=== PATIENT | female | born 1950 | race Caucasian/White ===

== ENCOUNTER → 2017-05-18 10:21 | Outpatient (CLI) | payer BC, SELFPAY | PROVIDERS: PCP Internal Medicine; Visit Provider Internal Medicine | DX: J11.1 Influenza due to unidentified influenza virus with other respiratory manifestations (principal) | CPT/HCPCS: 87275; 87276 ==

== ENCOUNTER → 2017-11-29 08:10 | Outpatient (CLI) | payer BC, SELFPAY ==
--- NOTE | 2017-11-29 08:12 | MM_ITS ---
MM Dig screening mamm BI w/CAD ORDERING PHYSICIAN : Lam Greene MD PATIENT AGE: 67 years GENDER: Female COMPARISON: July 2016, May 2010, April 2014, September 2011 INDICATION: ITS.REASON: Routine Mammogram Screeing TECHNIQUE: Standard CC and MLO images were obtained. R2 CAD reviewed. FINDINGS: Moderate heterogeneous breast density in character with no definitive nor prominent interval change . No areas of significant new concerns. Asymmetric areas of fibroglandular density seen today appear similar to previous studies RIGHT BREAST heterogeneous breast density. Focal areas of mild relative density are similar to previous studies dating back to 2014, 2011 particularly is noted at the superior right breast with these areas seem to dissipate from one view to another as well and appear stable overall LEFT BREAST:Stable appearance to the fibroglandular elements on left. Follow up one year on left IMPRESSION: . No significant new findings. Adequate Stable bilateral mammogram Moderate breast density BI-RADS Category: 2 Benign Finding(s) RECOMMENDED FOLLOW-UP: 1YR 1 YEAR FOLLOW-UP (A letter has been sent to the patient regarding results of the study.)
== END ==
PROVIDERS: Family Provider Internal Medicine; PCP Internal Medicine; Visit Provider Nurse Practitioner Obstetrics & Gynecology
DX: Z12.31 Encounter for screening mammogram for malignant neoplasm of breast (principal)
CPT/HCPCS: 77067

== ENCOUNTER → 2020-01-09 08:41 | Outpatient (CLI) | payer BC, SELFPAY ==
--- NOTE | 2020-01-09 08:41 | MM_ITS ---
PROCEDURE: MM DIG SCREENING MAMM BI W/CAD Digital Breast Tomosynthesis Included CLINICAL INDICATION: screening xmg There is no personal or family history of breast cancer. COMPARISON: MG [facility] DIG MAMM-SCREEN [facility] from 05/02/2014 MG [facility] DIG MAMM-SCREEN [facility] W/CAD from 07/27/2016 [facility] MM Dig screening mamm BI w/CAD from 11/29/2017 TECHNIQUE: Standard CC and MLO images and 3D Tomosynthesis was obtained. R2 CAD reviewed. FINDINGS: Diffuse fibroglandular densities are seen throughout both breast and the findings are bilateral and symmetrical. There is faint arterial calcification in each breast. There is no suspicious lesion and no suspicious microcalcifications. IMPRESSION: Moderate diffuse breast density with no suspicious lesions seen BI-RAD Category: 2 Benign Finding(s) FOLLOW-UP: 1YR 1 Year Follow-up (A letter has been sent to the patient regarding results of the study.) Dictated by: Dr. Eleazar Woody MD 01/14/2020 10:30 Dr. Eleazar Woody MD in [place] 01/14/2020 10:30
[2020-01-09 09:54] LABS: Basophils % 1.1 % (0.1-2.0); Eosinophils # 0.2 K/mm3 (0.0-0.4); Eosinophils % 4.7 % (0.1-12.0); Hematocrit 41.4 % (37.0-47.0); Hemoglobin 13.7 g/dL (12.2-16.2); Lymphocytes # 0.9 K/mm3 (0.7-4.5); Lymphocytes % 25.8 % (10-50); Mean Corpuscular HGB Conc 33.1 g/dL (31.8-35.4); Mean Corpuscular Volume 90.6 fl (81-99); Mean Platelet Volume 8.4 fl (7.4-10.4); Monocytes # 0.3 K/mm3 (0.1-1.0); Monocytes % 7.1 % (1.7-9.3); Neutrophils # 2.2 K/mm3 (1.8-7.8); Neutrophils % 61.4 % (37.0-80.0); Platelet Count 203 K/mm3 (142-424); Red Blood Count 4.56 M/mm3 (4.20-5.40); Red Cell Distribution Width 12.9 % (11.5-17.5); White Blood Count 3.6 K/mm3 (4.8-10.8)
[2020-01-09 11:24] LABS: Chloride 105 mmol/L (98-107); Potassium 4.2 mmoL/L (3.5-5.1); Sodium 138 mmol/L (136-145)
[2020-01-09 11:26] LABS: Blood Urea Nitrogen 14 mg/dl (7-17); Estimated Glomerular Filt Rate 83 ml/min (>60); GFR (African American) 101 ML/MIN (>60)
[2020-01-09 11:27] LABS: Alanine Aminotransferase 14 U/L (12-78); Albumin Level 3.7 g/dl (3.5-5.0); Albumin/Globulin Ratio 1.4 (1.1-1.8); Alkaline Phosphatase 56 U/L (38-126); Anion Gap 9.2 mEq/L (5-15); Aspartate Amino Transferase 29 U/L (14-36); Bilirubin,Total 0.5 mg/dl (0.2-1.3); Calcium 8.7 mg/dl (8.4-10.2); Carbon Dioxide 28 mmol/L (22.0-30.0); Cholesterol 191 mg/dl (140-200); Globulin 2.6 g/dL (1.3-3.2); Glucose 93 mg/dl (74-100); Total Protein,Serum 6.3 g/dl (6.3-8.2); Triglycerides 63 mg/dl (30-150); VLDL Cholesterol 13 mg/dL (0-40)
[2020-01-09 11:28] LABS: Chol/HDL Ratio 2.6 (1-3.5); HDL Cholesterol 73 mg/dl (40-60)
[2020-01-09 11:38] LABS: Direct LDL Cholesterol 98.63 mg/dL (100-129)
== END ==
PROVIDERS: PCP Internal Medicine; Visit Provider Nurse Practitioner Obstetrics & Gynecology
DX: Z12.31 Encounter for screening mammogram for malignant neoplasm of breast (principal); Z01.419 Encounter for gynecological examination (general) (routine) without abnormal findings
CPT/HCPCS: 36415; 77063; 77067; 80053; 80061; 85025

== ENCOUNTER → 2020-01-09 09:19 | Outpatient (CLI) | payer BC, SELFPAY | PROVIDERS: Visit Provider Nurse Practitioner Obstetrics & Gynecology | DX: Z01.419 Encounter for gynecological examination (general) (routine) without abnormal findings (principal) | CPT/HCPCS: 36415; 80053; 80061; 85025 ==

== ENCOUNTER 2020-09-10 14:15 | Emergency (ER) | payer MEDICARE, SELFPAY ==
[2020-09-10 14:16] VITALS: BP 136/89; PULSE 77; RESP 16; TEMP 36.6; O2SAT 98; BMI 27.1
[2020-09-10 14:32] LABS: POC Glucose,Bedside 112 (70-110)
--- NOTE | 2020-09-10 14:39 | XR_ITS ---
PROCEDURE: XR CHEST PORTABLE CLINICAL HISTORY: confusion COMPARISON: No exams were available for comparison FINDINGS: The cardiomediastinal silhouette and pulmonary vascularity are within normal limits. The lungs are clear without infiltrates, suspicious nodules, or pleural effusions. There is minimal opacity within the left CP angle which could be due to small area of atelectasis or fibrosis IMPRESSION: Small nonspecific opacity left CP angle otherwise negative Dictated by: Casey Mariee MD 09/10/2020 16:56 Casey Mariee MD in [place] 09/10/2020 16:56
--- NOTE | 2020-09-10 14:51 | ECG_ITS ---
APPROVED REPORT Exam: Resting ECG HR:59 bpm ECG Measurements Heart Rate 59 AXES LA 194 P 66 QRSd 76 QRS 14 QT 434 T 38 QTc 429 Conclusion Sinus bradycardia Cannot rule out Anterior infarct, age undetermined Abnormal ECG Electronically signed by : Low Deng, 09/10/2020 19:47:28
[2020-09-10 14:54] LABS: Basophils % 0.4 % (0.1-2.0); Eosinophils % 0.6 % (0.1-12.0); Hematocrit 42.6 % (37.0-47.0); Hemoglobin 14.6 g/dL (12.2-16.2); Lymphocytes # 0.7 K/mm3 (0.7-4.5); Lymphocytes % 11.8 % (10-50); Mean Corpuscular HGB Conc 34.3 g/dL (31.8-35.4); Mean Corpuscular Volume 87.5 fl (81-99); Mean Platelet Volume 8.7 fl (7.4-10.4); Monocytes # 0.2 K/mm3 (0.1-1.0); Monocytes % 3.2 % (1.7-9.3); Neutrophils # 5.2 K/mm3 (1.8-7.8); Platelet Count 204 K/mm3 (142-424); Red Blood Count 4.86 M/mm3 (4.20-5.40); Red Cell Distribution Width 12.9 % (11.5-17.5); White Blood Count 6.1 K/mm3 (4.8-10.8)
--- NOTE | 2020-09-10 14:55 | CT_ITS ---
PROCEDURE: CT HEAD/BRAIN WO CON CLINICAL INDICATION: memory loss COMPARISON: CT CT ANGIO NECK from 09/10/2020 TECHNIQUE: Axial images obtained. All CT scans at the facility use one or more dose reduction, viz: automated exposure control, ma/kV adjustment per patient size (including targeted exams where dose is matched to indication, i.e. head), or iterative reconstruction technique. FINDINGS: No midline shift, mass effect, intracranial hemorrhage, hydrocephalus, or extra-axial fluid collection is evident. The calvarium has an unremarkable appearance. There is a small amount fluid in the right mastoid sinus. No sinus air-fluid level. IMPRESSION: No acute intracranial finding Dictated by: Casey Mareie MD 09/10/2020 16:19 Casey Mariee MD in [place] 09/10/2020 16:19
--- NOTE | 2020-09-10 14:56 | CT_ITS ---
Procedure: CT ANGIO NECK CT ANGIO HEAD CLINICAL HISTORY: memory loss COMPARISON: CT CT ANGIO HEAD from 09/10/2020 TECHNIQUE: IV Contrast: 100ml Isovue 370 Axial images obtained with sagittal and coronal reformats. All CT scans at the facility use one or more dose reduction, viz: automated exposure control, ma/kV adjustment per patient size (including targeted exams where dose is matched to indication, i.e. head), or iterative reconstruction technique. FINDINGS: CTA neck: The aortic arch has an unremarkable appearance. There is bovine origin of both the right brachiocephalic artery and the left common carotid artery. There is considerable artifact from contrast within the venous structures on the right and the superior vena cava. The right carotid and internal carotid have an unremarkable appearance. No stenotic lesions dissections, or significant stenosis. There is a mild amount soft and calcific plaque involving the carotid bulb and proximal left ICA with less than 20 percent stenosis. There is some minimal ulceration along the superior aspect of the plaque. No evidence of dissection. The remaining portion of the internal carotid has an unremarkable appearance. The vertebral arteries have an unremarkable appearance. CTA head: No aneurysm, AVM, intracranial arterial dissection, or major intracranial occlusive process apparent. No enhancing lesions, midline shift, mass effect, or hydrocephalus is evident. No dural sinus thrombosis apparent. IMPRESSION: No significant stenotic lesions. There is some minimal calcific and soft plaque along the left carotid bulb and proximal ICA with some shallow ulceration superiorly. No aneurysm, AVM, dissection, or major intracranial occlusive process apparent Dictated by: Casey Mariee MD 09/10/2020 16:32 Casey Mariee MD in [place] 09/10/2020 16:32
[2020-09-10 15:00] VITALS: BP 140/84; PULSE 71; RESP 18; O2SAT 97
[2020-09-10 15:04] LABS: Sodium 135 mmol/L (136-145)
[2020-09-10 15:06] LABS: Chloride 101 mmol/L (98-107)
[2020-09-10 15:07] LABS: Alanine Aminotransferase 19 U/L (12-78); Albumin Level 4.7 g/dl (3.5-5.0); Albumin/Globulin Ratio 1.5 (1.1-1.8); Alkaline Phosphatase 87 U/L (38-126); Aspartate Amino Transferase 31 U/L (14-36); Bilirubin,Total 0.8 mg/dl (0.2-1.3); Blood Urea Nitrogen 15 mg/dl (7-17); Carbon Dioxide 25 mmol/L (22.0-30.0); Creatinine Clearance Estimated 60 mL/min (50-200); Estimated Glomerular Filt Rate 100 ml/min (>60); GFR (African American) 121 ML/MIN (>60); Globulin 3.2 g/dL (1.3-3.2); Total Protein,Serum 7.9 g/dl (6.3-8.2)
[2020-09-10 15:08] LABS: Calcium 9.4 mg/dl (8.4-10.2); Glucose 117 mg/dl (74-100)
--- NOTE | 2020-09-10 15:11 | HMH.EDGENADL ---
ED Disposition Clinical Impression: Retrograde amnesia, Anxiety reaction Disposition: Home, Self-Care Condition on Discharge: Fair Additional Instructions: Try to relax at home do not drive for next couple days make sure patient stays accompanied at home and also does not cook with fire. Follow-up in neurology clinic with Dr. David Anne Prescriptions: Aspirin [Aspirin 81mg EC Tab] 81 mg PO DAILY 30 Days #30 tablet.dr Transmission Status: Pending to [facility] Atorvastatin Calcium [Lipitor 40mg Tab] 40 mg PO HS #30 tab Transmission Status: Pending to [facility] Referrals: Maxim Martinez [Primary Care Provider] - - Critical Care Critical Care Time: No Attestation: On 09/10/20, the high probability of a clinically significant, sudden or life threatening deterioration of the following system(s) required my full and direct attention, intervention and personal management. The time I documented below is in addition to time spent performing reported procedures but includes the following listed in this critical care notation. Medical Decision Making - Medical Records Medical records reviewed: Yes: I reviewed the patient's medical records. - Oh Inquiry Pt receiving controlled substance: No Vital Signs: 09/10/20 14:16 09/10/20 15:00 09/10/20 15:30 Temperature 98 F Temperature Source Oral Pulse Rate 71 61 Pulse Rate [Radial] 77 Respiratory Rate 16 18 14 Blood Pressure 140/84 119/76 Blood Pressure [Right Arm] 136/89 Blood Pressure Mean 102 101 Blood Pressure Mean [Right Arm] 104 Blood Pressure Position [Right Arm] Sitting 02 Sat by Pulse Oximetry 98 97 96 Oxygen Delivery Method Room Air - Lab Data Lab results reviewed: Yes: I reviewed the patient's lab results. Lab Results 09/10/20 14:25: POC Glucose 112 H 09/10/20 14:40: WBC 6.1, RBC 4.86, Hgb 14.6, Hct 42.6, MCV 87.5, MCH 30.0, MCHC 34.3, RDW 12.9, Plt Count 204, MPV 8.7, Neut % (Auto) 84.0 H, Lymph % (Auto) 11.8, Harper % (Auto) 3.2, Eos % (Auto) 0.6, Baso % (Auto) 0.4, Neut # (Auto) 5.2, Lymph # (Auto) 0.7, Harper # (Auto) 0.2, Eos # (Auto) 0.0, Baso # (Auto) 0.0 09/10/20 14:40: Sodium 135 L, Potassium 4.0, Chloride 101, Carbon Dioxide 25, Anion Gap 13.0, BUN 15, Creatinine 0.60, Estimated Creat Clear 60, Estimated GFR 100, Est GFR ( Amer) 121, Glucose 117 H, Calcium 9.4, Total Bilirubin 0.8, AST 31, ALT 19, Alkaline Phosphatase 87, Total Protein 7.9 D, Albumin 4.7, Globulin 3.2, Albumin/Globulin Ratio 1.5 09/10/20 16:55: POC Glucose 104 Result diagrams: 09/10/20 14:40 09/10/20 14:40 Orders (Tests/Meds): ED MEDICATIONS Generic Name Dose Route Start Last Admin Trade Name Freq PRN Reason Stop Dose Admin Sodium Chloride 10 ml 09/10/20 16:58 Sodium Chloride 0.9% 10ml Vial IV 10/10/20 16:57 NEEDED PRN to Dilute Lorazepam inj Discontinued Medications Generic Name Dose Route Start Last Admin Trade Name Freq PRN Reason Stop Dose Admin Iopamidol 100 ml 09/10/20 15:51 09/10/20 15:56 Iopamidol-370 (76%);100ml Bottle IV 09/10/20 15:52 100 ml ONCE ONE Administration Lorazepam 1 mg 09/10/20 16:58 09/10/20 17:00 Lorazepam 2mg/Ml Vial IV 09/10/20 16:59 1 mg ONCE ONE Administration Sodium Chloride 40 ml 09/10/20 15:51 09/10/20 15:56 0.9 % Sodium Chloride 50 Ml Vial IV 09/10/20 15:52 40 ml ONCE ONE Administration Sodium Chloride 10 ml 09/10/20 15:51 09/10/20 15:56 Sodium Chloride 0.9% 10ml Syr (Rad Only) IV 09/10/20 15:52 10 ml ONCE ONE Administration ORDERS Category Date Time Status Full Resp Panel w/COVID ([facility]) Routine Lab 09/10/20 16:59 Ordered Urinalysis and Microscopic Stat Lab 09/10/20 15:16 Ordered Medical Decision Narrative: Patient appears without any focal findings however complaining of memory lapses only today no previous history of similar episodes no unusual medications no head trauma and no history of Alz
[2020-09-10 15:30] VITALS: BP 119/76; PULSE 61; RESP 14; O2SAT 96
--- NOTE | 2020-09-10 15:35 | PC.NURSE ---
pt to CT
--- NOTE | 2020-09-10 16:36 | PC.NURSE ---
i overheard pt talking to asking why she was here and where was she. I went in and asked her her name she answered i asked her what day it was and where she was and she could not tell me. She is very confused as to what has happened to her. pt continues to ask why she is here.
--- NOTE | 2020-09-10 16:50 | PC.NURSE ---
yordan thornton notified ER that pt has become confused again, asking her why is she here and who long she has been here, becoming upset and crying. ER MD went to bedside to reassess pt.
[2020-09-10 17:03] LABS: POC Glucose,Bedside 104 (70-110)
--- NOTE | 2020-09-10 17:07 | PC.NURSE ---
placed call to [facility] for stroke team
--- NOTE | 2020-09-10 17:09 | PC.NURSE ---
Dr Meraz speaking with stroke team Dr Hurd
--- NOTE | 2020-09-10 17:15 | PC.NURSE ---
pt tearful hyperventilating family at bedside. pt states she can't remember why she is in the hospital .
[2020-09-10 17:22] LABS: Adenovirus,PCR Not Detected (NotDetected); Bordetella Pertussis Not Detected (NotDetected); Chlamydophila Pneumoniae, PCR Not Detected (NotDetected); Coronavirus 19, PCR Not Detected (NotDetected); Coronavirus 229E Not Detected (NotDetected); Coronavirus NL63 Not Detected (NotDetected); Coronavirus OC43 Not Detected (NotDetected); Coronovirus HKU1,PCR Not Detected (NotDetected); Human Metapneumovirus Not Detected (NotDetected); Influenza A, PCR Not Detected (NotDetected); Influenza AH1, 2009 Not Detected (NotDetected); Influenza AH1, PCR Not Detected (NotDetected); Influenza AH3,PCR Not Detected (NotDetected); Influenza B, PCR Not Detected (NotDetected); Mycoplasma Pneumoniae, PCR Not Detected (NotDetected); Parainfluenza 1, PCR Not Detected (NotDetected); Parainfluenza 2, PCR Not Detected (NotDetected); Parainfluenza 3, PCR Not Detected (NotDetected); Parainfluenza 4, PCR Not Detected (NotDetected); Respiratory Syncytial Virus Not Detected (NotDetected); Rhinovirus/Enterovirus Not Detected (NotDetected)
[2020-09-10 17:26] LABS: Microscopic, Urine URINE MICROSCOPIC (MICROSCOPIC)
[2020-09-10 17:47] LABS: Appearance,Urine CLEAR (Clear); Bilirubin,Urine Negative (Negative); Blood, Urine Negative (Negative); Color,Urine YELLOW (Yellow); Glucose,Urine (UA) Negative (Negative); Ketones,Urine 1+ (Negative); Leukocyte Esterase,Urine Negative (Negative); Nitrate,Urine Negative (Negative); PH,Urine 6.5 (5.0-8.5); Protein,Urine Negative (Negative); Urobilinogen,Urine 0.2 EU/dl (0.2)
[2020-09-10 18:29] VITALS: BP 122/74; PULSE 78; RESP 16; TEMP 36.6; O2SAT 98
== END 2020-09-10 18:33 | disposition home or self-care (01) ==
PROVIDERS: Emergency Provider Emergency Medicine; PCP Internal Medicine
DX: F41.1 Generalized anxiety disorder (principal); R41.2 Retrograde amnesia
CPT/HCPCS: 70450; 70496; 70498; 71045; 80053; 81001; 82962; 85025; 87581; 87633; 87798; 93005; 96374; 99283; Q9967

== ENCOUNTER → 2021-02-26 15:09 | Outpatient (CLI) | payer MEDICARE, SELFPAY ==
--- NOTE | 2021-02-26 15:10 | MM_ITS ---
PROCEDURE INFORMATION: Exam: MG Bilateral Screening 3D Mammography Exam date and time: 02/26/2021 3:10 PM Age: 70 years old Clinical indication: Encounter for screening mammogram for malignant neoplasm of breast TECHNIQUE: Imaging protocol: Bilateral screening tomosynthesis and 2D mammography including computer-aided detection (CAD) when performed. COMPARISON: 1. MG MM DIG SCREENING MAMM BI W/CAD 01/09/2020 8:57 AM 2. MG [facility] MM Dig screening mamm BI w/CAD 11/29/2017 8:37 AM FINDINGS: MAMMOGRAPHY: Breast composition: The breast tissue is heterogeneously dense, which may obscure small masses. Mass: None. Architectural distortion: None. Calcifications: No suspicious calcifications. Asymmetric density: None. Skin thickening: None. Axillary adenopathy: None. IMPRESSION: No mammographic evidence of malignancy. Annual screening is recommended unless otherwise clinically indicated. ASSESSMENT: BI-RADS Category 1: Negative
== END ==
PROVIDERS: PCP Internal Medicine; Visit Provider Nurse Practitioner Obstetrics & Gynecology
DX: Z12.31 Encounter for screening mammogram for malignant neoplasm of breast (principal)
CPT/HCPCS: 77063; 77067

== ENCOUNTER → 2021-08-01 17:16 | Outpatient (CLI) | payer MEDICARE, SELFPAY ==
[2021-08-01 19:14] LABS: Basophils % 0.9 % (0.1-2.0); Eosinophils # 0.1 K/mm3 (0.0-0.4); Eosinophils % 2.8 % (0.1-12.0); Hematocrit 39.2 % (37.0-47.0); Hemoglobin 13.3 g/dL (12.2-16.2); Lymphocytes # 0.9 K/mm3 (0.7-4.5); Lymphocytes % 21.9 % (10-50); Mean Corpuscular Hemoglobin 30.8 pg (27.0-31.2); Mean Corpuscular Volume 90.6 fl (81-99); Mean Platelet Volume 10.4 fl (7.4-10.4); Monocytes # 0.3 K/mm3 (0.1-1.0); Neutrophils # 2.7 K/mm3 (1.8-7.8); Neutrophils % 67.3 % (37.0-80.0); Platelet Count 213 K/mm3 (142-424); Red Blood Count 4.33 M/mm3 (4.20-5.40); Red Cell Distribution Width 13.4 % (11.5-17.5); White Blood Count 4.1 K/mm3 (4.8-10.8)
[2021-08-01 19:31] LABS: Erythrocyte Sedimentation Rate 14 mm/hr (0-30)
[2021-08-01 19:43] LABS: Chloride 104 mmol/L (98-107)
[2021-08-01 19:44] LABS: Potassium 4.2 mmoL/L (3.5-5.1); Sodium 135 mmol/L (136-145)
[2021-08-01 19:46] LABS: Alanine Aminotransferase 20 U/L (12-78); Albumin Level 3.8 g/dl (3.5-5.0); Albumin/Globulin Ratio 1.5 (1.1-1.8); Alkaline Phosphatase 68 U/L (38-126); Anion Gap 12.2 mEq/L (5-15); Aspartate Amino Transferase 39 U/L (14-36); Bilirubin,Total 0.6 mg/dl (0.2-1.3); Blood Urea Nitrogen 12 mg/dl (7-17); Carbon Dioxide 23 mmol/L (22.0-30.0); Estimated Glomerular Filt Rate 83 ml/min (>60); GFR (African American) 101 ML/MIN (>60); Globulin 2.5 g/dL (1.3-3.2); Total Protein,Serum 6.3 g/dl (6.3-8.2)
[2021-08-01 19:47] LABS: Calcium 8.7 mg/dl (8.4-10.2); Chol/HDL Ratio 2.8 (1-3.5); Cholesterol 192 mg/dl (140-200); Glucose 78 mg/dl (74-100); HDL Cholesterol 68 mg/dl (40-60); Triglycerides 127 mg/dl (30-150); VLDL Cholesterol 25 mg/dL (0-40)
[2021-08-01 19:58] LABS: Direct LDL Cholesterol 91.56 mg/dL (100-129)
[2021-08-01 21:33] LABS: Vitamin B12 508 pg/mL (239-931)
[2021-08-01 21:44] LABS: Folate > 20.00 ng/mL
[2021-08-05 13:11] LABS: Rapid Plasma Reagin Ab Titer Non Reactive (NonRea<1:1)
== END ==
PROVIDERS: PCP Internal Medicine; Visit Provider Internal Medicine
DX: R41.0 Disorientation, unspecified (principal); E03.9 Hypothyroidism, unspecified; F41.9 Anxiety disorder, unspecified
CPT/HCPCS: 80053; 80061; 82607; 82746; 85025; 85651; 86592

== ENCOUNTER → 2021-08-06 09:41 | Outpatient (CLI) | payer MEDICARE, BC, SELFPAY ==
--- NOTE | 2021-08-06 | ECG_ITS ---
APPROVED REPORT Exam: Resting ECG HR:58 bpm ECG Measurements Heart Rate 58 AXES QRSd 84 QRS 74 QT 415 T 68 QTc 412 Conclusion Sinus BRADYCARDIA Poor R Wave Progression Otherwise a Normal EKG Electronically signed by : Maxim Martinez MD 08/11/2021 09:52:34
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
== END ==
PROVIDERS: PCP Internal Medicine; Visit Provider Internal Medicine
DX: R41.82 Altered mental status, unspecified (principal)
CPT/HCPCS: 70450; 93005

== ENCOUNTER 2021-09-29 20:47 | Emergency (ER) | payer BC, MEDICARE, SELFPAY ==
[2021-09-29 20:48] VITALS: BP 173/70; PULSE 64; RESP 18; TEMP 36.7; O2SAT 96; BMI 26.9
[2021-09-29 21:00] VITALS: BP 145/71; PULSE 56; O2SAT 97
[2021-09-29 21:30] VITALS: BP 145/68; PULSE 56; O2SAT 98
--- NOTE | 2021-09-29 21:55 | CT_ITS ---
PROCEDURE INFORMATION: Exam: CT Orbits Without Contrast Exam date and time: 09/29/2021 10:10 PM Age: 70 years old Clinical indication: Injury or trauma; Other: Abrasion; Swelling; Orbit/periorbital; Left TECHNIQUE: Imaging protocol: Computed tomography of the orbits without contrast. Radiation optimization: All CT scans at this facility use at least one of these dose optimization techniques: automated exposure control; mA and/or kV adjustment per patient size (includes targeted exams where dose is matched to clinical indication); or iterative reconstruction. COMPARISON: CT HEAD/BRAIN WO CON 08/06/2021 10:02 AM FINDINGS: Paranasal sinuses: No air-fluid levels in the paranasal sinuses. Orbital cavities: Bilateral globes are intact. No retrobulbar hematoma or acute inflammatory changes. Soft tissues: Mild left periorbital soft tissue edema noted. No hematoma Bones/joints: No acute osseous abnormality. IMPRESSION: No evidence of acute fracture or other acute traumatic orbital injury.
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
[2021-09-29 22:00] VITALS: BP 150/66; PULSE 53; RESP 16; O2SAT 97
[2021-09-29 23:41] VITALS: BP 150/74; PULSE 56; RESP 18; TEMP 36.7; O2SAT 97
== END 2021-09-30 00:04 | disposition home or self-care (01) ==
PROVIDERS: Emergency Provider Emergency Medicine; PCP Internal Medicine
DX: S05.02XA Injury of conjunctiva and corneal abrasion without foreign body, left eye, initial encounter (principal); S05.12XA Contusion of eyeball and orbital tissues, left eye, initial encounter; H53.8 Other visual disturbances; E07.9 Disorder of thyroid, unspecified; Z79.82 Long term (current) use of aspirin; Z79.890 Hormone replacement therapy; Z79.899 Other long term (current) drug therapy; Z23 Encounter for immunization; W20.8XXA Other cause of strike by thrown, projected or falling object, initial encounter
CPT/HCPCS: 70480; 90471; 90714; 99285

== ENCOUNTER → 2022-02-06 13:38 | Outpatient (CLI) | payer BC, MEDICARE, SELFPAY ==
--- NOTE | 2022-02-06 13:52 | XR_ITS ---
FINAL REPORT CLINICAL HISTORY: CHRONIC COUGH COMPARISON: 09/10/2020 FINDINGS: Two views of the chest were obtained. The heart size and pulmonary vascularity are within normal limits. The mediastinum is normal. No acute pulmonary abnormality is identified. There is no pneumothorax. The bony thorax is intact. IMPRESSION: No active cardiopulmonary disease. Reviewed, Interpreted and Dictated by Felton Minor III, MD Transcribed by Caroilne Swenson Authenticated and [facility]
== END ==
PROVIDERS: PCP Internal Medicine; Visit Provider Internal Medicine
DX: R05.3 Chronic cough (principal)
CPT/HCPCS: 71046

== ENCOUNTER → 2022-07-01 13:57 | Outpatient (CLI) | payer BC, MEDICARE, SELFPAY ==
--- NOTE | 2022-07-01 14:16 | MR_ITS ---
FINAL REPORT CLINICAL HISTORY: Recurrent confusion, alteration in awareness, ence FORGETFULNESS TO PLACES X 6 TIMES MEMORY LOSS THIS HAS BEEN GOING ON FOR 1.5 YEARS HAD COVID TWICE 2020 BLURRED VISION HEADACHES FINDINGS: Multiplanar MR imaging of the brain was performed without and with contrast. There is no evidence of intracranial hemorrhage or mass. There is no evidence of Chiari malformation. There is minimal scattered increased signal in the deep white matter which is nonspecific. No abnormal extra-axial fluid collection is seen. The ventricular size is within normal limits. There is no evidence of shift of the midline structures. The posterior fossa and brainstem have an unremarkable appearance. No area of abnormal restricted diffusion is identified. No abnormal contrast enhancement is seen. The 7th and 8th nerve root complexes are intact. There is mild abnormal signal in the right mastoid air cells consistent with chronic mastoiditis. IMPRESSION: Nonspecific white matter signal changes. Chronic right mastoiditis. Reviewed, Interpreted and Dictated by Randal Quintero MD Transcribed by Myra Esparza Authenticated and [facility]
[2022-07-01 14:57] LABS: Potassium 4.2 mmoL/L (3.5-5.1); Sodium 135 mmol/L (136-145)
[2022-07-01 15:00] LABS: Blood Urea Nitrogen 13 mg/dl (7-17); Calcium 8.5 mg/dl (8.4-10.2); Carbon Dioxide 27 mmol/L (22.0-30.0); Estimated Glomerular Filt Rate 71 ml/min (>60); GFR (African American) 86 ML/MIN (>60); Glucose 72 mg/dl (74-100)
[2022-07-01 15:06] LABS: C-Reactive Protein 1.1 mg/L (0-4)
[2022-07-01 15:10] LABS: Erythrocyte Sedimentation Rate 18 mm/hr (0-30)
[2022-07-01 15:18] LABS: T4 (Thyroxine) 7.1 ug/dl (5.53-11.0)
[2022-07-01 15:28] LABS: Triiodothryronine (T3) Uptake 28 % (23.5-40.5)
[2022-07-01 15:32] LABS: Thyroid Stimulating Hormone 3.89 uIU/mL (0.465-4.68)
[2022-07-01 16:18] LABS: Vitamin B12 386 pg/mL (239-931)
[2022-07-01 16:21] LABS: Folate > 20.00 ng/mL
[2022-07-01 16:23] LABS: Anion Gap 9.2 mEq/L (5-15); Chloride 103 mmol/L (98-107)
[2022-07-02 10:07] LABS: Free T4 (Free Thyroxine) 0.79 ng/dl (0.78-2.19)
[2022-07-03 10:41] LABS: Rapid Plasma Reagin Ab Titer Non Reactive (NonRea<1:1)
[2022-07-03 11:51] LABS: Thyroid Peroxidase Antibodies <9 IU/mL (0-34)
[2022-07-03 13:11] LABS: Anti-Centromere B Antibodies <0.2 AI (0.0-0.9); Anti-DNA (DS) Ab Qn <1 IU/mL (0-9); Anti-Jo-1 <0.2 AI (0.0-0.9); Anti-Smith Antibody <0.2 AI (0.0-0.9); Antichromatin Antibodies <0.2 AI (0.0-0.9); Antiscleroderma-70 Antibodies <0.2 AI (0.0-0.9); RNP Antibodies 0.2 AI (0.0-0.9); Sjogren's Anti-SS-A <0.2 AI (0.0-0.9); Sjogren's Anti-SS-B <0.2 AI (0.0-0.9)
== END ==
LOC: RAD 14:00
PROVIDERS: PCP Internal Medicine; Visit Provider Nurse Practitioner Family
DX: G93.40 Encephalopathy, unspecified (principal); R46.89 Other symptoms and signs involving appearance and behavior; E07.9 Disorder of thyroid, unspecified; R06.83 Snoring; E66.3 Overweight; Z68.28 Body mass index [BMI] 28.0-28.9, adult
CPT/HCPCS: 36415; 70553; 80048; 82607; 82746; 84436; 84439; 84443; 84479; 85651; 86140; 86225; 86235; 86376; 86593; 93270; A9576

== ENCOUNTER → 2022-07-15 09:47 | Outpatient (CLI) | payer BC, MEDICARE, SELFPAY ==
[2022-07-18 13:39] LABS: Levetiracetam (Keppra) 6.5 ug/mL (10.0-40.0)
== END ==
PROVIDERS: PCP Internal Medicine; Visit Provider Specialist
DX: G93.40 Encephalopathy, unspecified (principal); R46.89 Other symptoms and signs involving appearance and behavior; R94.01 Abnormal electroencephalogram [EEG]
CPT/HCPCS: 36415; 80177

== ENCOUNTER → 2022-07-17 08:19 | Outpatient (CLI) | payer BC, MEDICARE, SELFPAY ==
--- NOTE | 2022-07-17 08:19 | MM_ITS ---
PROCEDURE INFORMATION: Exam: MG Bilateral Screening 3D Mammography Exam date and time: 07/17/2022 8:20 AM Age: 71 years old Clinical indication: Screening. No family history of breast cancer. TECHNIQUE: Imaging protocol: Bilateral Screening tomosynthesis and 2D mammography including computer-aided detection (CAD) when performed. COMPARISON: 1. MG MM DIG SCREENING MAMM BI W/CAD 02/26/2021 3:19 PM 2. MG MM DIG SCREENING MAMM BI W/CAD 01/09/2020 8:57 AM 3. MG [facility] MM Dig screening mamm BI w/CAD 11/29/2017 8:37 AM 4. MG [facility] DIG MAMM-SCREEN [facility] W/CAD 07/27/2016 9:49 AM FINDINGS: MAMMOGRAPHY: Breast composition: The breasts are heterogeneously dense, which may obscure small masses. Mass: No suspicious mass. Architectural distortion: None. Calcifications: No suspicious calcifications. Asymmetric density: None. Skin thickening: None. Axillary adenopathy: None. IMPRESSION: No mammographic evidence of malignancy. Annual screening is recommended unless otherwise clinically indicated. ASSESSMENT: BI-RADS Category 1: Negative
== END ==
PROVIDERS: PCP Internal Medicine; Visit Provider Nurse Practitioner Obstetrics & Gynecology
DX: Z12.31 Encounter for screening mammogram for malignant neoplasm of breast (principal)
CPT/HCPCS: 77063; 77067

== ENCOUNTER → 2022-07-23 12:58 | Outpatient (CLI) | payer BC, MEDICARE, SELFPAY | PROVIDERS: PCP Internal Medicine; Visit Provider Nurse Practitioner Family | DX: G47.33 Obstructive sleep apnea (adult) (pediatric) (principal); R06.83 Snoring; F39 Unspecified mood [affective] disorder | CPT/HCPCS: G0399 ==

== ENCOUNTER → 2022-08-14 11:33 | Outpatient (CLI) | payer BC, MEDICARE, SELFPAY ==
--- NOTE | 2022-08-14 | CA_ITS ---
APPROVED REPORT Exam: Pharmacologic Technologist: Debbie Jane, Ht: 5 ft 3 in Wt: 157 lbs BSA: 1.74 m2 HR: 50 bpm BP: 126/75 mmHg Rhythm: Sinus micah Medical History Medications: Levothyroxine,,,,, Aspirin,,,,, Estradiol,,,,, Augmentin,,,,, Escitalopram Oxalate,,,,, BRIvaracetam,,,,, LiOthyronine,,,,, Stress Test Details Test: LEXISCAN HR Resting HR: 49 bpm Max Heart Rate (APMHR): 151.567862 bpm Max HR Achieved: 90 bpm Target HR (85% APMHR): 128.091900 bpm % of APMHR: 59.60 Recovery HR: 82 bpm BP Resting BP: 126/75 mmHg Max BP: 137/82 mmHg Recovery BP: 134.0/54.0 mmHg ECG Resting ECG: Sinus micah Clinical Exercise duration: 04:12 min Highest Stage Achieved: Stress ECG Conclusion During lexiscan pt experinced dizziness and headache. No arrhythmias noted. <1mm ST depression. No ischemic changes. Test Summary REST . . . . . . . Sitting REST 02:52 . . 49 . 126/ 75 . . Stage 1 01:00 . . 82 . . . . Stage 2 01:00 . . 89 . 137/ 62 . . Stage 3 01:00 . . 86 . . . . Stage 4 01:00 . . 79 . 134/ 54 . . Stage 4 01:12 . . 79 . 134/ 54 . Stop exercise at 04:12 RECOVERY 01:00 . . 84 . 124/ 59 . . RECOVERY 02:00 . . 74 . 124/ 59 . . RECOVERY 03:00 . . 72 . 124/ 59 . . RECOVERY 04:00 . . 70 . 124/ 59 . . RECOVERY 04:35 . . 72 . 120/ 64 . . Electronically signed by : Davonte Del Angel MD 08/19/2022 08:15:16
--- NOTE | 2022-08-14 11:33 | NM_ITS ---
APPROVED REPORT Exam: Nuclear Stress Test Indication: SOB, FATIGUE, SSIZURE'S Patient Location: Outpatient Stress Tech: Kaylee Hodgson NE Tech:Yvonne AlejoJIAN RT(R)(N) Ht: 5 ft 3 in Wt: 157 lbs Bra Size: C HR: 49 bpm BP: 126/75 mmHg BSA: 1.74 m2 TID: 1.06 BMI: 27.8 History: SOB, FATIGUE, SSIZURE'S Procedure: Patient received 0.4 mg of intravenous Lexiscan, resting heart rate 49 bpm, resting blood pressure 126/75 mmHg, with Lexiscan maximum heart rate achieved was 90 bpm which is % of the maximum predicted heart rate and blood pressure was 137/82 mmHg. With Lexiscan, patient denied any complaint of chest pain. Cardiac Stress and Resting SPECT Images: Cardiac Stress and Resting SPECT images were obtained using technetium 99m Myoview 32.8 mCi stress and 10.28 mCi at rest. Uniform myocardial activity for stress and rest gated images calculated ejection fraction of 64% with normal wall motion Conclusion: Scintigraphic evidence of Lexiscan induced myocardial ischemia with normal ejection fraction normal wall motion Electronically signed by : Davonte Del Angel MD 08/18/2022 14:06:33
== END ==
PROVIDERS: PCP Internal Medicine; Visit Provider Physician Assistant
DX: R06.02 Shortness of breath (principal); R94.01 Abnormal electroencephalogram [EEG]; Z86.79 Personal history of other diseases of the circulatory system
CPT/HCPCS: 78452; 93017; 93306; A9502; J2785

== ENCOUNTER 2024-01-21 09:50 | Outpatient (CLI) | payer MEDICARE, BC, SELFPAY ==
--- NOTE | 2024-01-21 09:51 | MM_ITS ---
PROCEDURE INFORMATION: Exam: MG Bilateral Screening 3D Mammography Exam date and time: 01/21/2024 10:00 AM Age: 73 years old Clinical indication: Screening examination. TECHNIQUE: Imaging protocol: Bilateral Screening tomosynthesis and 2D mammography including computer-aided detection (CAD) when performed. COMPARISON: 1. MG MM DIG SCREENING MAMM BI W/CAD 07/17/2022 8:20 AM 2. MG MM DIG SCREENING MAMM BI W/CAD 02/26/2021 3:19 PM FINDINGS: MAMMOGRAPHY: Breast composition: There are scattered areas of fibroglandular density. Mass: None. Architectural distortion: None. Calcifications: No suspicious calcifications. Asymmetric density: None. Skin thickening: None. Axillary adenopathy: None. IMPRESSION: No mammographic evidence of malignancy. Annual screening is recommended unless otherwise clinically indicated. ASSESSMENT: BI-RADS Category 1: Negative.
== END 2024-01-21 23:59 | disposition home or self-care (01) ==
LOC: RAD 09:51
PROVIDERS: PCP Internal Medicine; Visit Provider Nurse Practitioner Obstetrics & Gynecology
DX: Z12.31 Encounter for screening mammogram for malignant neoplasm of breast (principal)
CPT/HCPCS: 77063; 77067

== ENCOUNTER 2024-09-26 17:25 | Outpatient (CLI) | payer BC, MEDICARE, SELFPAY ==
[2024-09-26 18:15] LABS: Basophils % 0.9 % (0.1-2.0); Eosinophils # 0.2 Kmm3 (0.0-0.4); Eosinophils % 4.9 % (0.1-12.0); Immature Granulocytes # 0.01 10^3uL; Immature Granulocytes % 0.3 %; Lymphocytes # 0.9 K/mm3 (0.7-4.5); Lymphocytes % 24.6 % (10-50); Mean Corpuscular HGB Conc 33.3 g/dL (31.8-35.4); Mean Corpuscular Hemoglobin 29.7 pg (27.0-31.2); Mean Corpuscular Volume 89.2 fl (81-99); Mean Platelet Volume 11.3 fl (7.4-10.4); Monocytes # 0.4 K/mm3 (0.1-1.0); Monocytes % 10.4 % (1.7-9.3); Neutrophils % 58.9 % (37.0-80.0); Nucleated Red Blood Cells # 0 10^3/uL; Nucleated Red Blood Cells % 0 %; Platelet Count 233 K/mm3 (142-424); Red Blood Count 4.37 M/mm3 (4.20-5.40); Red Cell Distribution Width 12.7 % (11.5-17.5); White Blood Count 3.5 K/mm3 (4.8-10.8)
[2024-09-26 19:58] LABS: Alanine Aminotransferase 14 U/L (12-78); Albumin/Globulin Ratio 1.5 (1.1-1.8); Alkaline Phosphatase 67 U/L (38-126); Anion Gap 6.5 mEq/L (5-15); Aspartate Amino Transferase 31 U/L (14-36); Bilirubin,Total 0.5 mg/dl (0.2-1.3); Blood Urea Nitrogen 15 mg/dl (7-17); Calcium 9.6 mg/dl (8.4-10.2); Carbon Dioxide 28 mmol/L (22.0-30.0); Chloride 105 mmol/L (98-107); Estimated Glomerular Filt Rate 62 ml/min (>60); GFR (African American) 75 ML/MIN (>60); Globulin 2.6 g/dL (1.3-3.2); Glucose 99 mg/dl (74-100); Potassium 4.5 mmoL/L (3.5-5.1); Sodium 135 mmol/L (136-145); Total Protein,Serum 6.6 g/dl (6.3-8.2)
--- OUTSIDE RECORDS SUMMARY | 2024-09-27 09:40 | XMS_ITS | Referral Summary ---
Author Organization [employer] Address [address] [place] [address] Care Team Providers Care Supervisor Dried Yeast Name Role Phone [facility], Provider Not In The System Primary Care Provider Unavailable Allergies No known active allergies Medications escitalopram oxalate (LEXAPRO) 10 MG tablet Take 1 tablet (10 mg total) by mouth every morning. 3 Active estradioL (VIVELLE-DOT) 0.1 mg/24 hr patch 1 patch twice a week Apply on Wednesday and Wednesday. 3 Active liothyronine (CYTOMEL) 5 MCG tablet Take 2 tablets (10 mcg total) by mouth daily. 3 Active aspirin 81 MG EC tablet Take 1 tablet (81 mg total) by mouth daily. Active loratadine (CLARITIN) 10 mg tablet Take 1 tablet (10 mg total) by mouth daily. 3 Active fluticasone propionate (FLONASE) 50 mcg/actuation nasal spray 2 sprays by Nasal route daily as needed for Rhinitis. Active levothyroxine (SYNTHROID, LEVOTHROID) 50 MCG tablet Take 1 tablet (50 mcg total) by mouth Every morning on an empty stomach. Active lamoTRIgine (LaMICtal) 100 MG tablet Take 1 tablet (100 mg total) by mouth 2 (two) times daily. 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 Postablative hypothyroidism 02/26/2020 Overview (08/19/2022): Last Assessment & Plan: Continue synthroid and T3 tx. Check TFTs today. Will send note about results. Immunizations Name Administration Dates Next Due Td (Adult) 09/29/2021 Social History Tobacco Use Types Packs/Day Years Used Date Smoking Tobacco: Never Smokeless Tobacco: Never Alcohol Use Standard Drinks/Week Comments Never 0 (1 standard drink = 0.6 oz pur e alcohol) Interpersonal Safety Answer Date Record ed Family or friends hurt you Not on file 04/30 Family or friends insult you Not on file Family or friends threaten you Not on file 0 04/30/2023 Family or friends scream or curse at you Not on file 04/30/2023 Housing Stability Answer Date Recorded Living situation today Not on file Living situation problems Not on file 2023 Food Insecurity Answer Date Recorded Food run out past 12 months Not on file 04/12 Food did not last past 12 months Not on file 04/30/2023 Employment Answer Date Recorded Help finding and keeping a job Not on file 0 04/30/2023 Family and Community Support Answer Demetri e Recorded Help with Day to Day Activities Not on file 04/30/2023 Feeling Lonely or Isolated Not on file 04/30 Educational Attainment Answer Date Pierce rded Speak language other than Frisian at home Not on file 04/30/2023 Want help with school or training Not on file 04/30/2023 Depression Answer Date Recorded PHQ-2 Risk Not on file 04/30/2023 Disabilities Answer Date Recorded Difficulty concentrating Not on file 024 Difficulty doing errands alone Not on file 0 04/30/2023 Substance Use Answer Date Recorded Used prescription meds for non-medical reasons N ot on file 04/30/2023 Used illegal drugs past 12 months Not on file 04/30/2023 Comments Unknown Sex and Gender Information Value Date Recorded Sex Assigned at Not on file Legal Sex Female 6:54 PM CDT Gender Identity Not on file Sexual Orientation Not on file Last Filed Vital Signs Vital Sign Reading Time Taken Comments Blood Pressure 136/63 01/26/2023 9:57 AM EDT Pulse 62 01/26/2023 9:57 AM EDT Temperature 36.5 C (97.7 F) 09/06/2022 6:00 AM EDT Respiratory Rate 16 09/06/2022 6:00 AM EDT Oxygen Saturation 99% 09/06/2022 6:00 AM EDT Inhaled Oxygen Concentration - - Weight 72.8 kg (160 lb 6.4 oz) 01/26/2023 9:57 A M EDT Height 160 cm (5' 3 ) 01/26/2023 9:57 AM EDT Body Mass Index 28.41 01/26/2023 9:57 AM EDT Plan of Treatment Not on file Insurance BLUE CROSS/BLUE SHIELD MEDICARE PART A B Advance Directives For more information, please contact: [phone] * Full Code (Latest Code Status on File) Date Activated Date Inactivated Comments 09/03/2022 10:11 AM 09/06/2022 2:18 PM Care Teams Supervisor Dried Yeast Relationship Specialty Start Date End Date [facility], Provider Not In The System, [place] [address] PCP - General 09/03/22
--- OUTSIDE RECORDS SUMMARY | 2024-09-27 09:40 | XMS_ITS | Clinical Summary ---
Author Organization [employer] Address [address] [place] [address] Care Team Providers Care Ginner Name Role Phone [facility], Provider Not In The System Primary Care [...] Administration Dates Next Due Td (Adult) 09/29/2021 Family History Medical History Relation Name Comments Cancer Other Thyroid disease Other Relation Name Status Comments Other Social History Tobacco Use Types Packs/Day Years [...] Date Pierce rded Speak language other than Ecuadorean at home Not on file 04/30/2023 Want [...] 01/26/2023 9:57 AM EDT Plan of Treatment Health Maintenance Due Date Last Done Comments CT Colonography 1952 Colonoscopy 1952 Colorectal Cancer Screening 1950 DXA SCAN 1950 FOBT/FIT 1952 Fit-DNA (Cologuard) 1952 Sigmoidoscopy 1952 Depression Screening (12+) 1964 Hepatitis C Screening 1970 Breast Cancer Screening 1992 Pneumococcal 50+ years (1 of 1 - PCV) 2002 Shingles Vaccine (Zoster) (1 of 2) 2002 COVID-19 VACCINE (1 - season) 2023 Tobacco Cessation Counseling and Screening (12+) 01/2601/26/2023 Falls Risk Screening 04/12/2024 Influenza Vaccine (Season Ended) 2024 Respiratory Syncytial Virus (RSV) Adult or (1 - 1-dose 75+ series) 11/05/2027 DTAP/TDAP/TD VACCINES (2 - Td or Tdap) 09/30/2031 Insurance BLUE CROSS/BLUE SHIELD MEDICARE PART A B Advance Directives For more information, please contact: [phone] * Full Code (Latest Code Status on File) Date Activated Date Inactivated Comments 09/03/2022 10:11 AM 09/06/2022 2:18 PM Care Teams Ginner Relationship Specialty Start Date End Date [facility], Provider Not In The System, [place] [address] PCP - General 09/03/22
--- OUTSIDE RECORDS SUMMARY | 2024-09-27 09:40 | XMS_ITS | Clinical Summary ---
Author Organization Healthcare Address [address] [place] [address] Care Team Providers Care Direct Support Worker Name Role Phone Unavailable Primary Care Provider Unavailabl e Social History Tobacco Use Types Packs/Day Years Used Date Smoking Tobacco: Never Assessed Comments Unknown Sex and Gender Information Value Date Recorded Sex Assigned at Not on file Legal Sex Female 6:12 PM EDT Gender Identity Not on file Sexual Orientation Not on file Plan of Treatment Health Maintenance Due Date Last Done Comments [facility]-Bone Density Scan 1952 [facility]-Depression Screening 1952 [facility]-/Child/Adol SDOH Screenings 1952 [facility]- SDOH Screenings 1970 [facility]-Adult SDOH Screenings 1970 CT Colonography 1997 Colonoscopy 1997 FIT-DNA 1997 FIT 1997 FOBT 1997 Sigmoidoscopy 1997 [facility]-Colorectal Cancer Screening 1997 [facility]-Pneumococcal Vaccine: 50 + Years (1 of 1 - PCV) 2002 [facility]-Zoster Vaccines (1 of 2) 2002 [facility]-DTaP,Tdap,and Td Vaccine s (1 - Tdap) 09/30/2021 09/29/2021 [id number] Vaccine (1 - 20 24-25 season) 2023 [facility]-Influenza Vaccine (Seaso n Ended) 2024 [facility]-RSV Vaccine: 60+ Years o r (1 - 1-dose 75+ series) 11/05/2027 HPV Vaccines Aged Out No longer eligi ble based on patient's age to complete this topic [facility]-HIB Vaccines Aged Out No longer e ligible based on patient's age to complete this topic [facility]-Hepatitis A Vaccines Aged Out No longer eligible based on patient's age to complete this topic UKY-IPV Vaccines Aged Out No longer e ligible based on patient's age to complete this topic [facility]-Rotavirus Vaccines Aged Out No lo nger eligible based on patient's age to complete this topic
== END 2024-09-26 23:59 | disposition home or self-care (01) ==
LOC: LAB.DROPOF 09-27 09:36
PROVIDERS: PCP Internal Medicine; Visit Provider Internal Medicine
DX: E03.9 Hypothyroidism, unspecified (principal); F39 Unspecified mood [affective] disorder
CPT/HCPCS: 80053; 84443; 85025

== ENCOUNTER 2024-10-24 15:09 | Outpatient (CLI) | payer BC, MEDICARE, SELFPAY ==
--- OUTSIDE RECORDS SUMMARY | 2024-10-24 15:11 | XMS_ITS | Referral Summary ---
Author Organization [employer] ([place], [place], [place], [place]) Address [address] [place] [address] Care Team Providers Care Advertising Associate Name Role Phone [facility], Provider Not In The System Primary [...] drink = 0.6 oz pur e alcohol) Food Insecurity Answer Date Recorded Food run [...] Date Pierce rded Speak language other than Belarusian at home Not on file 04/30/2023 Want help with school or training Not on file 04/30/2023 Substance Use Answer Date Recorded Used [...] Advance Directives For more information, please contact: [phone] * Full Code (Latest Code Status on File) Date Activated Date Inactivated Comments 09/03/2022 10:11 AM 09/06/2022 2:18 PM Care Teams Advertising Associate Relationship Specialty Start Date End Date [facility], Provider Not In The System, [place] [address] PCP - General 09/03/22
--- OUTSIDE RECORDS SUMMARY | 2024-10-24 15:11 | XMS_ITS | Clinical Summary ---
Author Organization Healthcare Address [address] [place] [address] Care Team Providers Care Ground Hand Name Role Phone Unavailable Primary Care Provider [...] Vaccine s (1 - Tdap) 09/30/2021 09/29/2021 [id number] Vaccine (1 - 20 24-25 season) 2023 [facility]-Influenza Vaccine (#1) 2024 [facility]-RSV Vaccine: 60+ Years o r [...]
--- OUTSIDE RECORDS SUMMARY | 2024-10-24 15:11 | XMS_ITS | Clinical Summary ---
Author Organization [employer] ([place], [place], [place], [place]) Address [address] [place] [address] Care Team Providers Care Director Process Improvement Name Role Phone [facility], Provider Not In The System Primary [...] Date Pierce rded Speak language other than Estonian at home Not on file 04/30/2023 Want [...] 01/2601/26/2023 Falls Risk Screening 04/12/2024 Influenza Vaccine (#1) 2024 Respiratory Syncytial Virus (RSV) Adult or (1 - 1-dose 75+ series) 11/05/2027 DTAP/TDAP/TD VACCINES (2 - Td or Tdap) 09/30/2031 Insurance BLUE CROSS/BLUE SHIELD MEDICARE PART A B Advance Directives For more information, please contact: [phone] * Full Code (Latest Code Status on File) Date Activated Date Inactivated Comments 09/03/2022 10:11 AM 09/06/2022 2:18 PM Care Teams Director Process Improvement Relationship Specialty Start Date End Date [facility], Provider Not In The System, [place] [address] PCP - General 09/03/22
[2024-10-24 15:29] LABS: Anion Gap 15.7 mEq/L (5-15); Blood Urea Nitrogen 14 mg/dl (7-17); Calcium 9.9 mg/dl (8.4-10.2); Carbon Dioxide 26 mmol/L (22.0-30.0); Chloride 99 mmol/L (98-107); Cholesterol 180 mg/dl (140-200); Creatinine,Serum 0.70 mg/dl (0.52-1.04); Estimated Glomerular Filt Rate 82 ml/min (>60); GFR (African American) 100 ML/MIN (>60); Glucose 82 mg/dl (74-100); HDL Cholesterol 59 mg/dl (40-60); Potassium 4.7 mmoL/L (3.5-5.1); Sodium 136 mmol/L (136-145); Triglycerides 94 mg/dl (30-150)
== END 2024-10-24 23:59 | disposition home or self-care (01) ==
LOC: LAB.DROPOF 15:09
PROVIDERS: PCP Internal Medicine; Visit Provider Internal Medicine
DX: E78.5 Hyperlipidemia, unspecified (principal); E87.1 Hypo-osmolality and hyponatremia
CPT/HCPCS: 80048; 80061

== ENCOUNTER 2024-12-21 12:32 | Outpatient (CLI) | payer BC, MEDICARE, SELFPAY ==
--- NOTE | 2024-12-21 12:38 | XR_ITS ---
FINAL REPORT CLINICAL HISTORY: Fall 3 weeks ago, right knee pain COMPARISON: None FINDINGS: AP, lateral and oblique views of the right knee were obtained. There is no prior exam for comparison. There is no acute osseous abnormality of the right knee. Mild degenerative joint disease is present. The soft tissues are normal. There is no joint effusion. IMPRESSION: Mild degenerative joint disease, with no acute osseous abnormality of the right knee. Reviewed, Interpreted and Dictated by Dana Stevenson MD Transcribed by Nadine Addison Authenticated and [facility]
--- OUTSIDE RECORDS SUMMARY | 2024-12-21 12:38 | XMS_ITS | Clinical Summary ---
Author Organization Healthcare Address [address] [place] [address] Care Team Providers Care Air Turning Machine Feeder Name Role Phone Unavailable Primary Care Provider [...] [facility]-Bone Density Scan 1952 [facility]-Depression Screening 1952 [facility]-Infant/Child/Adol SDOH Screenings 1952 [facility]- SDOH Screenings 1970 [facility]-Adult SDOH Screenings 1970 CT Colonography 1997 Colonoscopy 1997 FIT-DNA 1997 FIT 1997 FOBT 1997 Sigmoidoscopy 1997 [facility]-Colorectal Cancer Screening 1997 [facility]-Pneumococcal Vaccine: 50 + Years (1 of 1 - PCV) 2002 [facility]-Zoster Vaccines (1 of 2) 2002 [facility]-DTaP,Tdap,and Td Vaccine s (1 - Tdap) 09/30/2021 09/29/2021 [id number] Vaccine (1 - 20 24-25 season) 2024 [facility]-Influenza Vaccine (#1) 2024 [facility]-RSV Vaccine: 60+ [...]
--- OUTSIDE RECORDS SUMMARY | 2024-12-21 12:38 | XMS_ITS | Clinical Summary ---
Author Organization [facility] Address [address] [place] [address] Care Team Providers Care Tester Food Products Name Role Phone Maxim Martinez MD Primary Care Provider [phone] Allergies No known active allergies Medications estradiol (MINIVELLE, VIVELLE-DOT) 0.1 MG/24HR patch APPLY 1 PATCH TOPICALLY TWICE A WEEK 9 Active escitalopram (LEXAPRO) 10 MG tablet Take 1 tablet by mouth Daily. 2 Active aspirin 81 MG EC tablet Take 1 tablet by mouth Daily. Active fluticasone (FLONASE) 50 MCG/ACT nasal spray 2 sprays into the nostril(s) as directed by provider. Active lamoTRIgine (LaMICtal) 100 MG tablet TAKE 1/2 TABLET BY MOUTH TWICE DAILY FOR 7 DAYS, THEN TAKE 1/2 TABLET IN THE MORNING AND 1 TABLET IN THE EVENING FOR 14 DAYS, THEN TAKE 1 TABLET TWICE DAILY. Active Synthroid 50 MCG tablet Take 1 tablet by mouth once daily 90 tablet 3 5 Active liothyronine (CYTOMEL) 5 MCG tablet Take 2 tablets by mouth once daily 180 tablet 3 5 Active Active Problems Problem Noted Date Diagnosed Date Postablative hypothyroidism 02/26/2020 Assessment & Plan (06/05/2023 9:28 AM EST): Continue Synthroid and cytomel. Check TSH. Assessment & Plan (05/28/2022 2:51 PM EST): Continue synthroid and T3 tx. Check TFTs today. Will send note about results. Assessment & Plan (08/28/2021 10:00 AM EDT): Continue T4 and T3 tx. Check labs today. Assessment & Plan (02/28/2021 9:48 AM EST): Continue treatment with T4 and T3. Check labs today. Will contact her with results. Assessment & Plan (08/28/2020 11:01 AM EDT): Continue current tx. Check TFTs today. Assessment & Plan (02/26/2020 10:33 AM EST): Symptomatically okay. Check labs today. History of Graves' disease 02/26/2020 Assessment & Plan (05/28/2022 2:53 PM EST): No goiter or eye findings on exam today. Assessment & Plan (08/28/2021 10:00 AM EDT): No goiter or eye problems at this time. Assessment & Plan (08/28/2020 11:01 AM EDT): No goiter on exam. Family History Medical History Relation Name Comments Cancer Father pancreatic Cancer Maternal Grandfather colon Hypothyroidism Maternal Grandmother Kidney disease Maternal Grandmother No Known Problems Mother Cancer Sister lung Lung cancer Sister Relation Name Status Comments Father Maternal Grandfather Maternal Grandmother Mother Sister Social History Tobacco Use Types Packs/Day Years Used Date Smoking Tobacco: Never Passive Smoke Exposure: Never Smokeless Tobacco: Never Alcohol Use Standard Drinks/Week Comments Never 0 (1 standard drink = 0.6 oz pur e alcohol) AUDIT-C Answer Date Recorded Q1: How often do you have a drink containing alc ohol? Never 02/26/2020 Average Number of Drinks Not on file 020 Frequency of Binge Drinking Not on file 02/10 Abuse Screen Answer Date Recorded Unsafe at Home or Work/School Not on file Feels Threatened by Someone? Not on file 12/2022 Does Anyone Keep You from Co ntacting Others or Doint Things Outside the Home? Not on file 01/18/2023 Physical Sign of Abuse Present Not on file 1 Housing Stability Answer Date Recorded Current Living Arrangements Not on file 12/2022 Potentially Unsafe Housing Conditions Not on yan e 01/18/2023 Family and Community Support Answer Demetri e Recorded Help with Day-to-Day Activities Not on file 01/18/2023 Lonely or Isolated Not on file 01/18/2023 Employment Answer Date Recorded Do you want help finding or keeping work or a bennie b? Not on file 01/18/2023 Disabilities Answer Date Recorded Concentrating, Remembering, or Making Decisions Difficulty Not on file 01/18/2023 Doing Errands Independently Difficulty Not on fi le 01/18/2023 Education Answer Date Recorded Help with school or training? Not on file Preferred Language Not on file 01/18/2023 Comments Unknown Sex and Gender Information Value Date Recorded Sex Assigned at Not on file Legal Sex Female 10:23 AM EDT Gender Identity Not on file Sexual Orientation Not on file Last Filed Vital Signs Vital Sign Reading Time Taken Comments Blood Pressure 132/78 06/04/2023 1:04 PM EST Pulse 54 06/04/2023 1:04 PM EST Temperature 36.5 C (97.7 F) 08/28/2020 10:28 AM EDT Respiratory Rate 16 06/04/2023 1:04 PM EST Oxygen Saturation 98% 06/04/2023 1:04 PM EST Inhaled Oxygen Concentration - - Weight 71.2 kg (157 lb) 06/04/2023 1:04 PM EST Height 160 cm (5' 3 ) 06/04/2023 1:04 PM EST Body Mass Index 27.81 06/04/2023 1:04 PM EST Plan of Treatment Upcoming Encounters Date Type Department Care Team (Late st Contact Info) Description 01/17/2025 3:00 PM EDT Office Visit [facility] [address] [address] Saturnino Guzman MD [address] [address] Health Maintenance Due Date Last Done Comments DXA SCAN 1952 COLOGUARD 1997 COLON CANCER SCREENING 5 YEA R SIGMOIDOSCOPY 1997 COLONOSCOPY 1997 [address] CANCER SCREENING 1997 CT COLONOGRAPHY 1997 FECAL OCCULT BLOOD TEST 1997 FIT Testing (1 year) 1997 Pneumococcal Vaccine 50+ (1 of 1 - PCV) 2002 ZOSTER VACCINE (1 of 2) 2002 ANNUAL WELLNESS VISIT 04/06/2019 HEPATITIS C SCREENING 04/06/2019 TDAP/TD VACCINES (1 - Tdap) 09/30/2021 09/29/2021 COVID-19 Vaccine (1 - 2023-2 5 season) 2024 INFLUENZA VACCINE 01/10/2025 MAMMOGRAM 01/23/2026 01/24/2024, 01/10, 01/21/2024, Additional history exists [facility] Care Teams Tester Food Products Relationship Specialty Start Date End Date Maxim Martinez MD [address] [facility] [address] [place] [address] PCP - General Internal Medicine 04/06/19
== END 2024-12-21 23:59 | disposition home or self-care (01) ==
LOC: RAD 12:36
PROVIDERS: PCP Internal Medicine; Visit Provider Internal Medicine
DX: M17.11 Unilateral primary osteoarthritis, right knee (principal); W19.XXXA Unspecified fall, initial encounter
CPT/HCPCS: 73562

== ENCOUNTER 2025-01-12 13:02 | Outpatient (CLI) | payer BC, MEDICARE, OTHER, SELFPAY ==
--- OUTSIDE RECORDS SUMMARY | 2025-01-12 13:06 | XMS_ITS | Clinical Summary ---
Author Organization [employer] ([place], [place], [place], [place]) Address [address] [place] [address] Care Team Providers Care Coffee Brewer Name Role Phone [facility], Provider Not In The System Primary [...] today. Will send note about results. Immunizations Immunization Administration Dates Next Due Td (Adult) 09/29/2021 [...] Date Pierce rded Speak language other than Mozambican at home Not on file 04/30/2023 Want [...] Shingles Vaccine (Zoster) (1 of 2) 2002 Tobacco Cessation Counseling and Screening (12+) 01/2601/26/2023 Falls Risk Screening 04/12/2024 COVID-19 VACCINE (1 - 2023- season) 2024 Influenza Vaccine (#1) 2024 Respiratory Syncytial Virus (RSV) Adult or (1 - 1-dose 75+ series) 11/05/2027 DTAP/TDAP/TD VACCINES (2 - Td or Tdap) 09/30/2031 Insurance BLUE CROSS/BLUE SHIELD MEDICARE PART A B Advance Directives For more information, please contact: [phone] * Full Code (Latest Code Status on File) Date Activated Date Inactivated Comments 09/03/2022 10:11 AM 09/06/2022 2:18 PM Care Teams Coffee Brewer Relationship Specialty Start Date End Date [facility], Provider Not In The System, [place] [address] PCP - General 09/03/22
--- OUTSIDE RECORDS SUMMARY | 2025-01-12 13:06 | XMS_ITS | Referral Summary ---
Author Organization [employer] ([place], [place], [place], [place]) Address [address] [place] [address] Care Team Providers Care Government Affairs Manager Name Role Phone [facility], Provider Not In The System Primary Care [...] Date Pierce rded Speak language other than Micronesian at home Not on file 04/30/2023 Want [...] Advance Directives For more information, please contact: [phone] * Full Code (Latest Code Status on File) Date Activated Date Inactivated Comments 09/03/2022 10:11 AM 09/06/2022 2:18 PM Care Teams Government Affairs Manager Relationship Specialty Start Date End Date [facility], Provider Not In The System, [place] [address] PCP - General 09/03/22
--- OUTSIDE RECORDS SUMMARY | 2025-01-12 13:06 | XMS_ITS | Clinical Summary ---
Author Organization [facility] Address [address] [place] [address] Care Team Providers Care Healthcare Translator Name Role Phone Maxim Martinez MD Primary Care Provider [phone] Allergies No known active allergies Medications estradiol [...] Description 01/17/2025 3:00 PM EDT Office Visit [facility] [address] [phone] Saturnino Guzman MD [address] [address] Health Maintenance Due Date Last [...] TDAP/TD VACCINES (1 - Tdap) 09/30/2021 09/29/2021 INFLUENZA VACCINE 11/10/2024 COVID-19 Vaccine (1 - 2023-2 5 season) 2024 MAMMOGRAM 01/23/2026 01/24/2024, 01/10, 01/21/2024, Additional history exists Insurance [facility] Care Teams Healthcare Translator Relationship Specialty Start Date End Date Maxim Martinez MD [address] [facility] [address] [place] [address] PCP - General Internal Medicine 04/06/19
--- NOTE | 2025-01-12 13:07 | XR_ITS ---
FINAL REPORT CLINICAL HISTORY: right knee pain from fall x 4 weeks ago COMPARISON: None FINDINGS: Three views of the right knee were obtained. There is no acute fracture or dislocation. There is mild narrowing of the medial compartment joint space. Mild osteoarthritis is noted. Small osteophytes are seen along the undersurface of the patella. There is no acute soft tissue abnormality. IMPRESSION: Mild medial compartment and patellar osteoarthritis. Reviewed, Interpreted and Dictated by Randal Quintero MD Transcribed by Soumya Burt Authenticated and . [facility]
== END 2025-01-12 23:59 | disposition home or self-care (01) ==
PROVIDERS: PCP Internal Medicine; Visit Provider Physician Assistant
DX: M17.11 Unilateral primary osteoarthritis, right knee (principal); S86.9 Injury of unspecified muscle and tendon at lower leg level; S80.01XS Contusion of right knee, sequela; W19.XXXS Unspecified fall, sequela
CPT/HCPCS: 73562

== ENCOUNTER 2025-01-15 15:20 | Outpatient (RCR) | payer BC, MEDICARE, OTHER, SELFPAY | END 2025-01-15 23:59 | disposition home or self-care (01) | LOC: PT 15:20 | PROVIDERS: Visit Provider Physician Assistant | DX: M25.561 Pain in right knee (principal) | CPT/HCPCS: 97760 ==

== ENCOUNTER 2025-02-01 08:43 | Outpatient (CLI) | payer BC, MEDICARE, OTHER, SELFPAY ==
--- OUTSIDE RECORDS SUMMARY | 2025-01-17 15:00 | XMS_ITS | Encounter Summary ---
Author Organization [facility] Address [address] [place] [id number] Care Team Providers Care Ebay Reseller Name Role Phone Maxim Martinez MD Primary Care Provider [phone] Reason for Visit * Reason Comments Hypothyroidism Postablative Encounter Details Date Type Department Care Team (Late st Contact Info) Description 01/17/2025 3:00 PM EDT Office Visit [facility] [address] [address] Saturnino Guzman MD [address] [id number] Postablative hypothyroidism (Primary Dx); History of Graves' [...] Description 01/17/2026 3:00 PM EDT Office Visit [facility] [address] [address] Saturnino Guzman MD [address] [address] documented as of this encounter Procedures Procedure Name Priority Date/Time Associated Diagnosis Comments T3 Routine 01/17/2025 3:35 PM EDT Postablative hypothyroidism TSH Routine 01/17/2025 3:35 PM EDT Postablative hypothyroidism T4, FREE Routine 01/17/2025 3:35 PM EDT Postablative hypothyroidism documented in this encounter Results * T3 (01/17/2025 3:35 PM EDT) T3, Total 117.0 80.0 - 200.0 ng/dl 01/18/2025 2:19 AM EDT [facility] Blood Structure of right upper limb / Unknown Venipuncture / Unknown 01/17/2025 3:35 PM EDT 01/17/2025 3:35 PM EDT Narrative [facility] - 01/18/2025 2:19 AM EDT Results may be falsely increased if patient taking Biotin. Saturnino Guzman MD LAB BLOOD ORDERABLES Pretty l Result [facility]
[address] [place] [address], * T4, Free (01/17/2025 3:35 PM EDT) Free T4 0.95 0.92 - 1.68 ng/dL 01/18/2025 2:19 AM EDT [facility] Blood Structure of right upper limb / Unknown Venipuncture / Unknown 01/17/2025 3:35 PM EDT 01/17/2025 3:35 PM EDT Saturnino Guzman MD LAB BLOOD ORDERABLES Pretty l Result Performing Organization Address [facility] Co de Phone Number [facility]
[address] [place] [address], * TSH (01/17/2025 3:35 PM EDT) Pathologist [facility] TSH 2.720 0.270 - 4.200 uIU/mL 01/18/2025 2:19 AM EDT [facility] Blood Structure of right upper limb / Unknown Venipuncture / Unknown 01/17/2025 3:35 PM EDT 01/17/2025 3:35 PM EDT Saturnino Guzman MD LAB BLOOD ORDERABLES Pretty l Result Performing Organization Address City/[facility] Co de Phone Number [facility]
[address] [place] [address], [place] [phone] documented in this encounter Visit Diagnoses Diagnosis Postablative hypothyroidism- Primary Other postablative hypothyroidism History of Graves' disease documented in this encounter Care Teams Ebay Reseller Relationship Specialty Start Date End Date Maxim Martinez MD [address] [place] [phone] PCP - General Internal Medicine 04/06/19 documented as of this encounter
--- OUTSIDE RECORDS SUMMARY | 2025-02-01 08:56 | XMS_ITS | Encounter Summary ---
Author Organization [facility] Address [address] [place] [id number] Care Team Providers Care Associate Professor Of Literature Name Role Phone Maxim Martinez MD Primary Care Provider [phone] Encounter Details Date Type Department Care Team (Latest Contact Info) Description 01/17/2025 Travel Social History Tobacco Use Types Packs/Day Years [...] on file documented as of this encounter Plan of Treatment Upcoming Encounters Date Type Department Care Team (Late st Contact Info) Description 01/17/2026 3:00 PM EDT Office Visit [facility] [address] [facility] [address] [place] [address] Saturnino Guzman MD [address] [facility] [address] [place] [address] documented as of this encounter Visit Diagnoses Not on filedocumented in this encounter Care Teams Associate Professor Of Literature Relationship Specialty Start Date End Date Maxim Martinez MD [address] [place] [address] [place] [address] PCP - General Internal Medicine 04/06/19 documented as of this encounter
--- OUTSIDE RECORDS SUMMARY | 2025-02-01 08:56 | XMS_ITS | Encounter Summary ---
Author Organization [facility] Address [address] [place] [address] Care Team Providers Care Materials Clerk Name Role Phone Maxim Martinez MD Primary Care Provider [phone] Encounter Details Date Type Department Care Team (Late Contact Info) Description 01/18/2025 Results Follow-Up [facility] [address] [facility] [address] [place] [address] Saturnino Guzman MD [address] [facility] [address] [place] [address] Social History Tobacco Use Types Packs/Day Years [...] Encounters Date Type Department Care Team (Late Contact Info) Description 01/17/2026 3:00 PM EDT Office Visit [facility] [address] [place] [address] Saturnino Guzman MD [facility] [address] [place] [address] documented as of this encounter Visit Diagnoses Not on filedocumented in this encounter Care Teams Materials Clerk Relationship Specialty Start Date End Date Maxim Martinez MD [address] [facility] [address] [facility] [address] [place] [address] PCP - General Internal Medicine 04/06/19 documented as of this encounter
--- OUTSIDE RECORDS SUMMARY | 2025-02-01 08:56 | XMS_ITS | Clinical Summary ---
Author Organization [facility] Address [address] [place] [address] Care Team Providers Care Race Starter Name Role Phone Unavailable Primary Care Provider [...] Vaccine s (1 - Tdap) 09/30/2021 09/29/2021 [id number] Vaccine (1 - 20 24-25 season) 2024 [...]
--- OUTSIDE RECORDS SUMMARY | 2025-02-01 08:56 | XMS_ITS | Clinical Summary ---
Author Organization [facility] Address [address] [place] [phone] Care Team Providers Care Warp Tester Name Role Phone Maxim Martinez MD Primary Care Provider [phone] Allergies No known active allergies Medications estradiol (MINIVELLE, VIVELLE-DOT) 0.1 MG/24HR patch APPLY 1 PATCH TOPICALLY TWICE A WEEK 9 Active aspirin 81 MG EC tablet Take 1 tablet by mouth Daily. Active fluticasone (FLONASE) 50 MCG/ACT nasal spray Administer 2 sprays into the nostril(s) as directed by provider. Active Synthroid 50 MCG tablet Take 1 tablet by mouth once daily 90 tablet 3 5 Active liothyronine (CYTOMEL) 5 MCG tablet Take 2 tablets by mouth once daily 180 tablet 3 5 Active naproxen (NAPROSYN) 500 MG tablet Take 1 tablet by mouth 2 (Two) Times a Day With Meals. 5 Active famotidine (PEPCID) 20 MG tablet Take 1 tablet by mouth At Night As Needed for Indigestion or Heartburn. 5 Active escitalopram (LEXAPRO) 20 MG tablet Take 1 tablet by mouth Daily. 5 Active escitalopram (LEXAPRO) 10 MG tablet Take 1 tablet by mouth Daily. 2 01/18/20 25 Discontin ued(Dose adjustmen t) lamoTRIgine (LaMICtal) 100 MG tablet TAKE 1/2 TABLET BY MOUTH TWICE DAILY FOR 7 DAYS, THEN TAKE 1/2 TABLET IN THE MORNING AND 1 TABLET IN THE EVENING FOR 14 DAYS, THEN TAKE 1 TABLET TWICE DAILY. 01/18/20 25 Discontin ued(Side effects) Active Problems Problem Noted Date Diagnosed Date Postablative hypothyroidism 02/26/2020 Assessment & Plan (01/17/2025 3:31 PM EDT): Continue Synthroid and liothyronine. Check TFTs today. Assessment & Plan (06/05/2023 9:28 AM EST): [...] of Graves' disease 02/26/2020 Assessment & Plan (01/17/2025 3:31 PM EDT): No goiter. No eye findings. Assessment & Plan (05/28/2022 2:53 PM EST): No goiter or eye findings on exam today. Assessment & Plan (08/28/2021 10:00 AM EDT): No goiter or eye problems at this time. Assessment & Plan (08/28/2020 11:01 AM EDT): No goiter on exam. Encounters Date Type Department Care Team Description 01/18/2025 Results Follow-Up [facility] [address] [place] [address] Saturnino Guzman MD 01/17/2025 3:00 PM EDT Office Visit [facility] [address] [place] [address] Saturnino Guzman MD Postablative hypothyroidism (Primary Dx); History of Graves' disease 01/17/2025 Travel from Last 3 Months Family History Medical History Relation Name Comments [...] Pulse 52 01/17/2025 3:12 PM EDT Temperature 36.5 C (97.7 F) 08/28/2020 10:28 AM EDT Respiratory Rate 16 06/04/2023 1:04 PM EST Oxygen Saturation 98% 01/17/2025 3:12 PM EDT Inhaled Oxygen Concentration - - Weight 72 kg (158 lb 12.8 oz) 01/17/2025 3:12 PM EDT Height 160 cm (5' 2.99 ) 01/17/2025 3:12 PM EDT Body Mass Index 28.14 01/17/2025 3:12 PM EDT Plan of Treatment Upcoming Encounters Date Type Department Care Team (Late st Contact Info) Description 01/17/2026 3:00 PM EDT Office Visit [facility] [address] [facility] [address] [place] [phone] Saturnino Guzman MD [address] [facility] [address] [place], [place] [phone] Health Maintenance Due Date Last Done Comments DXA SCAN 1950 COVID-19 Vaccine (#1) 1955 COLOGUARD 1997 COLON CANCER SCREENING 5 YEA R SIGMOIDOSCOPY 1997 COLONOSCOPY 1997 COL[address]ECTAL CANCER SCREENING 1997 CT COLONOGRAPHY 1997 FECAL OCCULT BLOOD TEST 1997 FIT Testing (1 year) 1997 Pneumococcal Vaccine 50+ (1 of 1 - PCV) 2002 ZOSTER VACCINE (1 of 2) 2002 ANNUAL WELLNESS VISIT 04/06/2019 HEPATITIS C SCREENING 04/06/2019 TDAP/TD VACCINES (1 - Tdap) 09/30/2021 09/29/2021 INFLUENZA VACCINE 11/10/2024 MAMMOGRAM 01/23/2026 01/24/2024, 01/10, 01/21/2024, Additional history exists Procedures Procedure Name Priority Date/Time Associated Diagnosis Comments T3 Routine 01/17/2025 3:35 PM EDT Postablative hypothyroidism T4, FREE Routine 01/17/2025 3:35 PM EDT Postablative hypothyroidism TSH Routine 01/17/2025 3:35 PM EDT Postablative hypothyroidism from Last 3 Months Results * T3 (01/17/2025 3:35 PM EDT) T3, Total 117.0 80.0 - 200.0 ng/dl 01/18/2025 2:19 AM EDT [facility] Blood Structure of right upper limb / Unknown Venipuncture / Unknown 01/17/2025 3:35 PM EDT 01/17/2025 3:35 PM EDT Narrative [facility] - 01/18/2025 2:19 AM EDT Results may be falsely increased if patient taking Biotin. us Saturnino Guzman MD LAB BLOOD ORDERABLES Pretty l Result Performing Organization Address City/[facility]/ZIP Co de Phone Number [facility]
[address] [place] [address], * TSH (01/17/2025 3:35 PM EDT) TSH 2.720 0.270 - 4.200 uIU/mL 01/18/2025 2:19 AM EDT [facility] Blood Structure of right upper limb / Unknown Venipuncture / Unknown 01/17/2025 3:35 PM EDT 01/17/2025 3:35 PM EDT Saturnino Guzman MD LAB BLOOD ORDERABLES Pretty l Result Performing Organization Address [facility] de Phone Number [facility]
[address] [place] [address], * T4, Free (01/17/2025 3:35 PM EDT) Free T4 0.95 0.92 - 1.68 ng/dL 01/18/2025 2:19 AM EDT [facility] Blood Structure of right upper limb / Unknown Venipuncture / Unknown 01/17/2025 3:35 PM EDT 01/17/2025 3:35 PM EDT us Saturnino Guzman MD LAB BLOOD ORDERABLES Pretty l Result Performing Organization Address City/[facility]/ZIP Co de Phone Number [facility]
[address] [place] [address], from Last 3 Months Insurance MEDICARE A & B Member Subscriber Plan / Payer (Ef fective 2017-Present) Name:Catherine Saravia Member ID:[id number] Relation to Subscriber:Self Name:Catherine Saravia Subscriber ID:[id number] Payer ID:[id number] Group ID:Not on file Type:Not on file Address: [facility] [id number] [address] Member Subscriber Plan / Payer (Ef fective 2021-Present) Name:Catherine Saravia Member ID:[id number] Relation to Subscriber:Self Name:Catherine Saravia Subscriber ID:[id number] Payer ID:[id number] (NAIC) Type:Not on file Address: [id number] MEDICARE SUPPLEMENT Care Teams Warp Tester Relationship Specialty Start Date End Date Maxim Martinez MD [address] [place] [facility] [address] [place] [address] PCP - General Internal Medicine 04/06/19
--- OUTSIDE RECORDS SUMMARY | 2025-02-01 08:56 | XMS_ITS | Referral Summary ---
Author Organization [employer] ([place], [place], [place], [place]) Address [address] [place] [address] Care Team Providers Care Laminator Printed Circuit Boards Name Role Phone [facility], Provider Not In The System Primary Care [...] Date Pierce rded Speak language other than [place] at home Not on file 04/30/2023 Want [...] Advance Directives For more information, please contact: [phone] * Full Code (Latest Code Status on File) Date Activated Date Inactivated Comments 09/03/2022 10:11 AM 09/06/2022 2:18 PM Care Teams Laminator Printed Circuit Boards Relationship Specialty Start Date End Date [facility], Provider Not In The System, [place] [address] PCP - General 09/03/22
--- OUTSIDE RECORDS SUMMARY | 2025-02-01 08:56 | XMS_ITS | Clinical Summary ---
Author Organization [facility] ([place], [place], [place], [place]) Address [address] [place] [address] Care Team Providers Care Fabrication Machine Operator Name Role Phone [facility], Provider Not In The System Primary [...] Date Pierce rded Speak language other than Kittitian at home Not on file 04/30/2023 Want [...] Advance Directives For more information, please contact: [phone] * Full Code (Latest Code Status on File) Date Activated Date Inactivated Comments 09/03/2022 10:11 AM 09/06/2022 2:18 PM Care Teams Fabrication Machine Operator Relationship Specialty Start Date End Date [facility], Provider Not In The System, [place] [address] PCP - General 09/03/22
--- NOTE | 2025-02-01 09:00 | MR_ITS ---
FINAL REPORT TECHNIQUE: Multiplanar MR without contrast CLINICAL HISTORY: rule out occult fracture or bone bruise fall down steps in december gives out COMPARISON: None FINDINGS: Articular cartilage: There is diffuse thinning of the articular cartilage, most pronounced in the medial compartment along the posterior medial femoral condyle. Marrow signal: There is a large focus of bone marrow edema in the medial femoral condyle, that is likely a combination of bone contusion from the patient's known fall and degenerative changes. There is a small focus of bone marrow edema in the medial tibial plateau as well. No definite fracture line is identified. Joint fluid: A moderate joint effusion is present. Menisci: There is a complex tear root of the posterior horn of the medial meniscus. The lateral meniscus is intact. Ligaments: Unremarkable Tendons: Quadriceps and patellar tendon unremarkable IMPRESSION: 1. Large focus of bone marrow edema is present in the medial femoral condyle, that likely represents a combination of a bone contusion in this patient with a known fall and degenerative marrow edema. There is a small amount of bone marrow edema in the medial tibial plateau. 2. Complex tear of the root of the posterior horn medial meniscus. Reviewed, Interpreted and Dictated by Adriana Case MD Transcribed by Nadine Addison Authenticated and [facility]
== END 2025-02-01 23:59 | disposition home or self-care (01) ==
LOC: RAD 08:47
PROVIDERS: PCP Internal Medicine; Visit Provider Physician Assistant
DX: S83.232A Complex tear of medial meniscus, current injury, left knee, initial encounter (principal); R93.6 Abnormal findings on diagnostic imaging of limbs; S80.01XS Contusion of right knee, sequela; W10.9XXA Fall (on) (from) unspecified stairs and steps, initial encounter
CPT/HCPCS: 73721

== ENCOUNTER 2025-02-12 17:35 | Emergency (ER) | payer BC, MEDICARE, OTHER, SELFPAY ==
--- OUTSIDE RECORDS SUMMARY | 2025-01-17 14:00 | XMS_ITS | Encounter Summary ---
Author Organization [facility] Address [address] [place] [address] Care Team Providers Care Service Station Manager Name Role Phone Maxim Martinez MD Primary Care Provider [phone] Reason for Visit * Reason Comments Hypothyroidism Postablative Encounter Details Date Type Department Care Team (Late st Contact Info) Description 01/17/2025 3:00 PM EDT Office Visit [facility] [address] [address] Saturnino Guzman MD [address] [id number] Postablative hypothyroidism (Primary Dx); History of Graves' disease Social History Tobacco Use Types Packs/Day Years Used Date Smoking Tobacco: Never Passive Smoke Exposure: Never Smokeless Tobacco: Never Tobacco Cessation:Counseling Given: No Alcohol Use Standard Drinks/Week Comments Never 0 (1 standard drink = 0.6 oz pur e alcohol) AUDIT-C Answer Date Recorded Q1: How often do you have a drink containing alc ohol? Never 02/26/2020 Average Number of Drinks Not on file 020 Frequency of Binge Drinking Not on file 02/10 Comments Unknown Sex and Gender Information Value Date Recorded Sex Assigned at Not on file Legal Sex Female 10:23 AM EDT Gender Identity Not on file Sexual Orientation Not on file documented as of this encounter Last Filed Vital Signs Vital Sign Reading Time Taken Comments Blood Pressure 104/62 01/17/2025 3:12 PM EDT Pulse 52 01/17/2025 3:12 PM EDT Temperature - - Respiratory Rate - - Oxygen Saturation 98% 01/17/2025 3:12 PM EDT Inhaled Oxygen Concentration - - Weight 72 kg (158 lb 12.8 oz) 01/17/2025 3:12 PM EDT Height 160 cm (5' 2.99 ) 01/17/2025 3:12 PM EDT Body Mass Index 28.14 01/17/2025 3:12 PM EDT documented in this encounter Progress Notes * Saturnino Guzman MD - 01/17/2025 3:31 PM EDTAssociated Problem(s): History of Graves' disease No goiter. No eye findings. * Saturnino Guzman MD - 01/17/2025 3:31 PM EDTAssociated Problem(s): Postablative hypothyroidism Continue Synthroid and liothyronine. Check TFTs today. * Saturnino Guzman MD - 01/17/2025 3:00 PM EDT Images from the original note were not included. Office Note Date: 01/17/2025 Patient Name: Catherine Saravia : 1950 Chief Complaint Patient presents with Hypothyroidism Postablative History of Present Illness: Catherine Saravia is a 74 y.o. female who presents for Hypothyroidism (Postablative/) She remains on the synthroid 50mcg and cytomel 10mcg qd. She is taking this correctly. She isn't taking any interfering meds concurrently. She hasn't noted any change in the size of her neck. She denies any compressive sxs. She denies any eye complaints. She denies any sxs of hypo- or hyperthyroidism at this time. Subjective Review of Systems: Review of Systems Constitutional: Negative. Cardiovascular: Negative. Gastrointestinal: Negative. Endocrine: Negative. The following portions of the patient's history were reviewed and updated as appropriate: allergies, current medications, past family history, past medical history, past social history, past surgicalhistory, and problem list. Objective Visit Vitals BP 104/62 (BP Location: Left arm, Patient Position: Sitting, Cuff Size: Adult) Pulse 52 Ht 160 cm (62.99 ) Wt 72 kg (158 lb 12.8 oz) SpO2 98% BMI 28.14 kg/m?? Physical Exam: Physical Exam Constitutional: Appearance: Normal appearance. Neck: Thyroid: No thyroid mass, thyromegaly or thyroid tenderness. Lymphadenopathy: Cervical: No cervical adenopathy. Neurological: Mental Status: She is alert. Labs: TSH No results found for: TSHBASE Free T4 Free T4 Date Value Ref Range Status 06/04/2023 1.08 0.93 - 1.70 ng/dL Final T3 T3, Total Date Value Ref Range Status 06/04/2023 133.0 80.0 - 200.0 ng/dl Final TPO No results found for: THYROIDAB TG AB No results found for: THGAB TG No results found for: THYROGLB CBC w/DIFF No results found for: WBC , RBC , HGB , HCT , MCV , MCH , MCHC , RDW , RDWSD , MPV , PLT , NEUTRORELPCT , LYMPHORELPCT , MONORELPCT , EOSRELPCT , BASORELPCT , AUTOIGPER , NEUTROABS , LYMPHSABS , MONOSABS , EOSABS , BASOSABS , AUTOIGNUM , NRBC Assessment / Plan Assessment & Plan: Diagnoses and all orders for this visit: 1. Postablative hypothyroidism (Primary) Assessment & Plan: Continue Synthroid and liothyronine. Check TFTs today. Orders: - TSH; Future - T4, Free; Future - T3; Future 2. History of Graves' disease Assessment & Plan: No goiter. No eye findings. Current Outpatient Medications Medication Instructions aspirin 81 mg, Daily escitalopram (LEXAPRO) 20 mg, Daily estradiol (MINIVELLE, VIVELLE-DOT) 0.1 MG/24HR patch APPLY 1 PATCH TOPICALLY TWICE A WEEK famotidine (PEPCID) 20 mg, Nightly PRN fluticasone (FLONASE) 50 MCG/ACT nasal spray 2 sprays liothyronine (CYTOMEL) 10 mcg, Oral, Daily naproxen (NAPROSYN) 500 mg, 2 Times Daily With Meals Synthroid 50 mcg, Oral, Daily Return in about 1 year (around 01/17/2026) for Recheck with TSH, free T4, T3. Electronically signed by: Saturnino Guzman MD 01/17/2025 documented in this encounter Plan of Treatment Upcoming Encounters Date Type Department Care Team (Late st Contact Info) Description 01/17/2026 3:00 PM EDT Office Visit [facility] [address] [address] Saturnino Guzman MD [address] [address] documented as of this encounter Procedures Procedure Name Priority Date/Time Associated Diagnosis Comments T3 Routine 01/17/2025 3:35 PM EDT Postablative hypothyroidism TSH Routine 01/17/2025 3:35 PM EDT Postablative hypothyroidism T4, FREE Routine 01/17/2025 3:35 PM EDT Postablative hypothyroidism documented in this encounter Results * T3 (01/17/2025 3:35 PM EDT) T3, Total 117.0 80.0 - 200.0 ng/dl 01/18/2025 2:19 AM EDT [facility] Blood Structure of right upper limb / Unknown Venipuncture / Unknown 01/17/2025 3:35 PM EDT 01/17/2025 3:35 PM EDT Narrative [facility] - 01/18/2025 2:19 AM EDT Results may be falsely increased if patient taking Biotin. Saturnino Guzman MD LAB BLOOD ORDERABLES Pretty l Result [facility]
[address] [place] [address], * T4, Free (01/17/2025 3:35 PM EDT) Free T4 0.95 0.92 - 1.68 ng/dL 01/18/2025 2:19 AM EDT [facility] Blood Structure of right upper limb / Unknown Venipuncture / Unknown 01/17/2025 3:35 PM EDT 01/17/2025 3:35 PM EDT Saturnino Guzman MD LAB BLOOD ORDERABLES Pretty l Result Performing Organization Address [facility] Co de Phone Number [facility]
[address] [place] [address], * TSH (01/17/2025 3:35 PM EDT) Pathologist [facility] TSH 2.720 0.270 - 4.200 uIU/mL 01/18/2025 2:19 AM EDT [facility] Blood Structure of right upper limb / Unknown Venipuncture / Unknown 01/17/2025 3:35 PM EDT 01/17/2025 3:35 PM EDT Saturnino Guzman MD LAB BLOOD ORDERABLES Pretty l Result Performing Organization Address City/[facility] Co de Phone Number [facility]
[address] [place] [address], [place] [phone] documented in this encounter Visit Diagnoses Diagnosis Postablative hypothyroidism- Primary Other postablative hypothyroidism History of Graves' disease documented in this encounter Care Teams Service Station Manager Relationship Specialty Start Date End Date Maxim Martinez MD [address] [place] [address] [place] [phone] PCP - General Internal Medicine 04/06/19 documented as of this encounter
[2025-02-12 17:30] VITALS: BP 139/79; PULSE 71; RESP 18; TEMP 36.6; O2SAT 97; BMI 27.3
--- NOTE | 2025-02-12 17:36 | XR_ITS ---
PROCEDURE INFORMATION: Exam: XR Left Foot Exam date and time: 02/12/2025 5:44 PM Age: 74 years old Clinical indication: Injury or trauma; Fall; Blunt trauma; Foot; Left; Additional info: Fall, left foot and ankle pain TECHNIQUE: Imaging protocol: Radiologic exam of the left foot. Views: 1 or 2 views. COMPARISON: CR XR ANKLE LT 2V 02/12/2025 5:44 PM FINDINGS: Bones/joints: Normal. Soft tissues: Normal. IMPRESSION: No acute findings.
--- NOTE | 2025-02-12 17:36 | XR_ITS ---
PROCEDURE INFORMATION: Exam: XR Left Ankle Exam date and time: 02/12/2025 5:44 PM Age: 74 years old Clinical indication: Injury or trauma; Fall; Blunt trauma; Ankle; Left; Additional info: Fall, lateral ankle pain/swelling TECHNIQUE: Imaging protocol: Radiologic exam of the left ankle. Views: 1 or 2 views. COMPARISON: CR XR FOOT LT 2V 02/12/2025 5:44 PM FINDINGS: Bones/joints: Normal. Soft tissues: Normal. IMPRESSION: No acute findings.
--- NOTE | 2025-02-12 17:37 | HMH.EDGENADL ---
Discharge Plan Disposition Patient Disposition: Home, Self-Care Prescriptions Prescriptions: No Action liothyronine 5 mcg tablet 10 mcg PO DAILY 30 Days Qty: 60 levothyroxine [Synthroid] 50 mcg tablet 50 mcg PO DAILY Patient Comments: TAKE 1 TABLET BY MOUTH ONCE DAILY naproxen 500 mg tablet 500 mg PO BID Qty: 60 2RF Rx Instructions: Take with food or meal famotidine 20 mg tablet 20 mg PO HS Qty: 30 2RF estradiol [Anh] 0.1 mg/24 hr patch semiweekly See Rx Instructions .ROUTE .COMPLEX Qty: 8 11RF Dose Instruction: APPLY 1 PATCH TOPICALLY TWICE A WEEK . APPOINTMENT REQUIRED FOR FUTURE REFILLS Rx Instructions: APPLY 1 PATCH TOPICALLY TWICE A WEEK . APPOINTMENT REQUIRED FOR FUTURE REFILLS escitalopram oxalate 10 mg tablet See Rx Instructions .ROUTE .COMPLEX Qty: 90 1RF Dose Instruction: TAKE 1 TABLET BY MOUTH ONCE DAILY IN THE MORNING FOR ANXIETY Rx Instructions: TAKE 1 TABLET BY MOUTH ONCE DAILY IN THE MORNING FOR ANXIETY aspirin 81 MG tablet,delayed release (DR/EC) 81 mg PO DAILY 30 Days Qty: 30 0RF Referrals Follow up/Referrals: Maxim Martinez MD [Primary Care Provider, Medical] - See instructions Iron Sepulveda DO [Staff Physician, Orthopedics] - See instructions Activity Restrictions/Add. Instructions Additional Instructions/Restrictions: Your x-rays did not show any broken bones. You have an ankle sprain. Whenever you are walking, use the walking boot to help support your ankle. You can take the walking boot off when at rest. You can use naproxen as previously prescribed, Tylenol, ice and elevating the leg to help with symptoms. Contact Dr. Sepulveda to discuss follow-up plan. If you develop any new or worsening symptoms, or if you become concerned for your health for any reason, return to the emergency department for evaluation Clinical Impressions Clinical Impression: Left ankle sprain Print Language Print Language: Icelandic Discharge ED Provider: Ruben Swain Adult HPI General Chief complaint: Fall Stated complaint: ankle pain/Fall Time Seen by Provider: 02/12/25 17:36 Mode of Arrival: EMS Source of Information: Patient and EMS History of Present Illness HPI narrative: Catherine Saravia is a 74F with a history of right meniscal injury, anxiety, SUHAIL who presents to the emergency department for complaints of left ankle injury. Patient states that she was walking into her house and tripped over the threshold going into her house and felt a snap in her ankle. She reports pain to both the medial and lateral aspect of her ankle. She has been unable to bear weight on that ankle ever since. She is not on any blood thinning medications. She did not fall and hit her head and has no pain elsewhere. She received 100 mcg of fentanyl via EMS but states that it is wearing off. Related Data Home Medications ?Medication ?Instructions ?Recorded ?Confirmed liothyronine 5 mcg tablet 10 mcg PO DAILY 30 days #60 tabs 06/23/22 02/06/25 levothyroxine 50 mcg tablet 50 mcg PO DAILY 08/26/22 02/06/25 (Synthroid) Previous Rx's ?Medication ?Instructions ?Recorded aspirin 81 mg tablet,delayed 81 mg PO DAILY 30 days ##30 09/10/20 release estradiol 0.1 mg/24 hr semiweekly See Rx Instructions .Route 07/17/24 transdermal patch (Anh) .COMPLEX #8 patches escitalopram oxalate 10 mg tablet See Rx Instructions .Route 12/19/24 .COMPLEX #90 tabs famotidine 20 mg tablet 20 mg PO HS For GI protection #30 12/21/24 tabs naproxen 500 mg tablet 500 mg PO BID #60 tabs 12/21/24 Allergies Allergy/AdvReac Type Severity Reaction Status Date / Time No Known Allergies Allergy Verified 02/06/25 10:48 [facility] Disclaimer: The information contained in this section may have been updated after the patient was seen, as this information can be updated by other users. Medical History (Updated 02/12/25 @ 18:10 by Ruben Swain MD) History of anxiety History of hypothyroidism Swelling of right knee SOB (shortness of breath) on exertion Abnormal electrocardiogram [ECG] [EKG] Mood disorder Encephalopathy Surgical History History of anterior colporrhaphy H/O bilateral salpingo-oophorectomy H/O total vaginal hysterectomy Family History Other Cancer Thyroid disorder Social History (Updated 02/12/25 @ 17:46 by Rashmi Pennington RN) Smoking Status: Never smoker alcohol intake: never substance use type: denies use current occupational status: employed Travel in the last 8 weeks?: None household members: spouse housing: house marital status: Have you lived/traveled outside US in past 30 days?: No Contact w/someone who lives/traveled outside US past 30 days?: No Exposure to someone with infectious disease in past 14 days?: No Do you have a fever (greater than 100.4 F or 38 C)?: No Have you tested positive for COVID-19?: No Exposed to someone with COVID-19 in past 14 days?: No Do you have a sore throat?: No Do you have a cough?: No Do you have any weakness?: No Do you have any diarrhea?: No Are you experiencing any unusual bleeding?: No Do you have any muscle aches/pain?: No Do you have any abdominal pain?: No Are you experiencing loss of taste or smell?: No Other Medical History Have you received the Flu Vaccine for this season: No Have you received the Pneumonia Vaccine: No ROS Obtained: Yes Systems reviewed as appropriate & no additional complaints except as documented Physical Exam General General appearance: alert and in no apparent distress Head Head exam: atraumatic Eye Eye exam: Present normal appearance ENT ENT exam: Present normal external ear exam Neck Neck exam: Present full ROM Chest Chest inspection: Present symmetric chest wall rise Respiratory Respiratory exam: Present normal lung sounds bilaterally; Absent respiratory distress Cardiovascular Cardiovascular exam: Present regular rate and normal rhythm Abdominal Exam Abdominal exam: Present soft; Absent tenderness or guarding Extremities Exam Extremities exam: Present normal inspection Expanded Lower Extremity Exam Left: Ankle image:  1. Tenderness, swelling, ecchymosis Comment: Left lower extremity: Tenderness, swelling and ecchymosis over the lateral malleolus. Full strength and range of motion with dorsiflexion and plantarflexion. Sensation grossly intact. 2+ DP and PT pulses. Less than 2-second capillary refill. Back Exam Back exam: Present normal inspection Neurological Exam Neurological exam: Present alert and oriented X3 Psychiatric Psychiatric exam: Present normal affect Skin Skin exam: Present warm and dry Medical Decision Making Medical Records Screening: Per USPSTF and CDC recommendations, given the prevalence of disease in our region, it is our hospital?s policy to screen for HIV and viral Hepatitis for all patients aged 18 and over and those with ongoing risk factors. Oh Inquiry Pt receiving controlled substance: No Vital Signs: 02/12/25 17:30 Temperature 97.8 F Temperature Source Oral Pulse Rate [Apical] 71 Respiratory Rate 18 Blood Pressure [Right Arm] 139/79 Blood Pressure Mean [Right Arm] 99 Blood Pressure Source [Right Arm] Automatic Cuff Blood Pressure Position [Right Arm] Sitting 02 Sat by Pulse Oximetry 97 Oxygen Delivery Method Room Air Orders (Tests/Meds): ED MEDICATIONS Discontinued Medications Generic Name Dose Route Start Last Admin Trade Name Dana PRN Reason Stop Dose Admin Oxycodone HCl 5 mg 02/12/25 17:37 02/12/25 17:52 Oxycodone 5mg Immediate Release Tablet PO 02/12/25 17:38 5 mg ONCE ONE Administration ORDERS Category Date Time Status Ankle XR - Left 2 Views [XR ankle LT 2V] Stat Exams 02/12/25 17:36 Completed Foot XR left 2 views [XR foot LT 2V] Stat Exams 02/12/25 17:36 Completed HIV Combo Routine Lab 02/12/25 17:47 Ordered Hepatitis C Ab Qual. W/ RFX Routine Lab 02/12/25 17:47 Ordered Medical Decision Narrative: Catherine Saravia is a 74F with a history of right meniscal injury, anxiety, SUHAIL who presents to the emergency department for complaints of left ankle injury. Patient states that she was walking into her house and tripped over the threshold going into her house and felt a snap in her ankle. She reports pain to both the medial and lateral aspect of her ankle. She has been unable to bear weight on that ankle ever since. She is not on any blood thinning medications. She did not fall and hit her head and has no pain elsewhere. She received 100 mcg of fentanyl via EMS but states that it is wearing off. On arrival, patient is hemodynamically stable, no acute distress, breathing comfortably on room air. Afebrile. Physical exam, stated above, revealed an overall well-appearing female in no distress. She has swelling to the lateral aspect of the left ankle and tenderness in this area. There are some ecchymosis in this area as well. She has tenderness over the proximal forefoot on the lateral aspect as well. Sensation grossly intact. She is moving all toes with 5 out of 5 strength with plantar and dorsiflexion. No tenderness or deformity proximal to this. Differential diagnosis includes, but is not limited to: Ankle fracture, foot fracture, ankle sprain/ATFL injury, among others. Will obtain ankle and foot x-rays as well as administer 5 mg of oxycodone for pain. Extremity was interpreted by me personally. There is no fracture or dislocation. See radiology reports for details. Given this, I feel that patient has sprained her left ankle. Will provide walking boot. Will also get follow-up with Dr. Sepulveda. She does state that she is scheduled to see him later this month for her meniscus injury. I encouraged her to call to see when they would like her to follow-up given she now has an ankle sprain as well. I encouraged her to continue her naproxen as well as Tylenol, ice and rest. All questions were answered. She demonstrated understanding and was in agreement this plan. She was then discharged from the emergency department in stable condition. Critical Care Critical Care Time Critical Care Time: No
[2025-02-12] MEDS: OXYCODONE 5MG IMMEDIATE RELEASE TABLET 5 MG PO (17:52)
--- OUTSIDE RECORDS SUMMARY | 2025-02-12 17:57 | XMS_ITS | Encounter Summary ---
Author Organization [facility] Address [address] [place] [id number] Care Team Providers Care Forest Pathology Teacher Name Role Phone Maxim Martinez MD Primary Care Provider [phone] Encounter Details Date Type Department Care Team [...] Description 01/17/2026 3:00 PM EDT Office Visit [facility] [address] [facility] [address] [place] [address] Saturnino Guzman MD [address] [facility] [address] [place] [address] documented as of this encounter Visit Diagnoses Not on filedocumented in this encounter Care Teams Forest Pathology Teacher Relationship Specialty Start Date End Date Maxim Martinez MD [address] [place] [address] [place] [address] PCP - General Internal Medicine 04/06/19 documented as of this encounter
--- OUTSIDE RECORDS SUMMARY | 2025-02-12 17:57 | XMS_ITS | Clinical Summary ---
Author Organization Healthcare Address [address] [place] [address] Care Team Providers Care Mill Work Name Role Phone Unavailable Primary Care Provider [...] Vaccine s (1 - Tdap) 09/30/2021 09/29/2021 [id number] Vaccine (1 - 20 24-25 season) 2024 [...]
--- OUTSIDE RECORDS SUMMARY | 2025-02-12 17:57 | XMS_ITS | Encounter Summary ---
Author Organization [facility] Address [address] [place] [address] Care Team Providers Care Batter Mixer Helper Name Role Phone Maxim Martinez MD Primary Care Provider [phone] Encounter Details Date Type Department Care Team (Late Contact Info) Description 01/18/2025 Results Follow-Up [facility] [address] [facility] [address] [place] [address] Saturnino Guzman MD [address] [facility] [address] [place] [address] Social History Tobacco Use Types Packs/Day [...] Description 01/17/2026 3:00 PM EDT Office Visit [facility] [address] [place] [address] Saturnino Guzman MD [facility] [facility] [address] [place] [address] documented as of this encounter Visit Diagnoses Not on filedocumented in this encounter Care Teams Batter Mixer Helper Relationship Specialty Start Date End Date Maxim Martinez MD [address] [facility] [address] [facility] [address] [place] [address] PCP - General Internal Medicine 04/06/19 documented as of this encounter
--- OUTSIDE RECORDS SUMMARY | 2025-02-12 17:57 | XMS_ITS | Clinical Summary ---
Author Organization [facility] Address [address] [place] [id number] Care Team Providers Care Center Director Name Role Phone Maxim Martinez MD Primary Care Provider [phone] Allergies No known active allergies Medications estradiol [...] Department Care Team Description 01/18/2025 Results Follow-Up [facility] [address] [place] [address] Saturnino Guzman MD 01/17/2025 3:00 PM EDT Office Visit [facility] [address] [place] [address] Saturnino Guzman MD Postablative hypothyroidism (Primary Dx); [...] Description 01/17/2026 3:00 PM EDT Office Visit [facility] [address] [facility] [address] [place] [address] Saturnino Guzman MD [address] [facility] [address] [place], [place] [id number] Health Maintenance Due Date Last Done Comments [...] - 200.0 ng/dl 01/18/2025 2:19 AM EDT [facility] Blood Structure of right upper limb / Unknown Venipuncture / Unknown 01/17/2025 3:35 PM EDT 01/17/2025 3:35 PM EDT Narrative [facility] - 01/18/2025 2:19 AM EDT Results may be falsely increased if patient taking Biotin. us Saturnino Guzman MD LAB BLOOD ORDERABLES Pretty l Result Performing Organization Address City/[facility]/ZIP Co de Phone Number [facility]
[address] [place] [address], * TSH (01/17/2025 3:35 PM EDT) TSH 2.720 0.270 - 4.200 uIU/mL 01/18/2025 2:19 AM EDT [facility] Blood Structure of right upper limb / Unknown Venipuncture / Unknown 01/17/2025 3:35 PM EDT 01/17/2025 3:35 PM EDT Saturnino Guzman MD LAB BLOOD ORDERABLES Pretty l Result Performing Organization Address [facility] de Phone Number [facility]
[address] [place] [address], * T4, Free (01/17/2025 3:35 PM EDT) Free T4 0.95 0.92 - 1.68 ng/dL 01/18/2025 2:19 AM EDT [facility] Blood Structure of right upper limb / Unknown Venipuncture / Unknown 01/17/2025 3:35 PM EDT 01/17/2025 3:35 PM EDT us Saturnino Guzman MD LAB BLOOD ORDERABLES Pretty l Result Performing Organization Address City/[facility]/ZIP Co de Phone Number [facility]
[address] [place] [address], from Last 3 Months Insurance MEDICARE A & B Member Subscriber Plan / Payer (Ef fective 2017-Present) Name:Catherine Saravia Member ID:[id number] Relation to Subscriber:Self Name:Catherine Saravia Subscriber ID:[id number] Payer ID:[id number] Group ID:Not on file Type:Not on file Address: [facility] [id number] [address] Member Subscriber Plan / Payer (Ef fective 2021-Present) Name:Catherine Saravia Member ID:[id number] Relation to Subscriber:Self Name:Catherine Saravia Subscriber ID:[id number] Payer ID:[id number] (NAIC) Type:Not on file Address: [address] MEDICARE SUPPLEMENT Care Teams Center Director Relationship Specialty Start Date End Date Maxim Martinez MD [address] [place] [facility] [address] [place] [address] PCP - General Internal Medicine 04/06/19
--- OUTSIDE RECORDS SUMMARY | 2025-02-12 17:57 | XMS_ITS | Referral Summary ---
Author Organization [employer] ([place], [place], [place], [place], [place]) Address [address] [place] [address] Care Team Providers Care Criminal Lawyer Name Role Phone [facility], Provider Not In The System MD Primary Care Provider Unavailable Allergies No known [...] Date Pierce rded Speak language other than American at home Not on file 04/30/2023 Want [...] Advance Directives For more information, please contact: [phone] * Full Code (Latest Code Status on File) Date Activated Date Inactivated Comments 09/03/2022 10:11 AM 09/06/2022 2:18 PM Care Teams Criminal Lawyer Relationship Specialty Start Date End Date [facility], Provider Not In The System, [place] [address] PCP - General 09/03/22
--- OUTSIDE RECORDS SUMMARY | 2025-02-12 17:57 | XMS_ITS | Clinical Summary ---
Author Organization [employer] ([place], [place], [place], [place], [place]) Address [address] [place] [address] Care Team Providers Care Formula Bottler Name Role Phone [facility], Provider Not In The System MD Primary [...] Date Pierce rded Speak language other than [place] Citizen at home Not on file 04/30/2023 Want [...] Advance Directives For more information, please contact: [phone] * Full Code (Latest Code Status on File) Date Activated Date Inactivated Comments 09/03/2022 10:11 AM 09/06/2022 2:18 PM Care Teams Formula Bottler Relationship Specialty Start Date End Date [facility], Provider Not In The System, [place] [address] PCP - General 09/03/22
[2025-02-12 18:40] VITALS: BP 135/73; PULSE 85; RESP 16; TEMP 36.6; O2SAT 99
== END 2025-02-12 18:39 | disposition home or self-care (01) ==
PROVIDERS: Emergency Provider Student in an Organized Health Care Education/Training Program; PCP Internal Medicine
DX: S93.402A Sprain of unspecified ligament of left ankle, initial encounter (principal); W01.10XA Fall on same level from slipping, tripping and stumbling with subsequent striking against unspecified object, initial encounter
CPT/HCPCS: 73600; 73620; 99283; 99285

== ENCOUNTER 2025-03-06 08:59 | Outpatient (CLI) | payer BC, MEDICARE, SELFPAY ==
--- NOTE | 2025-03-06 09:01 | XR_ITS ---
FINAL REPORT CLINICAL HISTORY: left ankle pain COMPARISON: 02/12/2025 FINDINGS: AP, oblique, and lateral views of the left ankle were obtained. There is no fracture or dislocation. The ankle mortise is intact. Soft tissues are unremarkable. IMPRESSION: No acute osseous abnormality of the left ankle. Reviewed, Interpreted and Dictated by Dana Stevenson MD Transcribed by Soumya Burt Authenticated and [facility]
== END 2025-03-06 23:59 ==
LOC: RAD 09:01
PROVIDERS: PCP Internal Medicine; Visit Provider Physician Assistant
DX: S93.492D Sprain of other ligament of left ankle, subsequent encounter (principal); X58.XXXD Exposure to other specified factors, subsequent encounter
CPT/HCPCS: 73610